=== PATIENT | male | born 1950 | race Caucasian/White ===

== ENCOUNTER 2020-02-08 13:22 | Inpatient (IN) | payer OTHER ==
[~2020-02-08] VITALS: Ht 180.3 cm; Wt 99.8 kg
[2020-02-08] MEDS ORDERED: SODIUM CHLORIDE 0.9% 1,000 ML IV ONE (15:00)
[2020-02-08 15:37] LABS: Basophils # (auto) 0 10 ^3/uL (0-0.2); Basophils % (auto) 0.4 % (0.0-2.0); Eosinophils # (auto) 0.3 10 ^3/uL (0-0.8); Hemoglobin 11.4 g/dL (13.5-17.5); Lymphocytes # (auto) 1.5 10 ^3/uL (0.4-5.4); Lymphocytes % (auto) 21.3 % (10.0-50.0); Mean Corpuscular Hemoglobin 29.2 pg (28.0-32.0); Mean Corpuscular Hgb Conc. 32.6 g/dL (32.0-36.0); Mean Corpuscular Volume 89.7 fL (80.0-100.0); Monocytes # (auto) 0.5 10 ^3/uL (0-1.3); Monocytes % (auto) 6.6 % (0.0-12.0); Neutrophils # (auto) 4.8 10 ^3/uL (1.6-8.6); Neutrophils % (auto) 67.7 % (37.0-80.0); Nucleated Red Blood Cells % 0.1 %; Platelet Count (auto) 164 10^3/uL (140-450); Red Cell Distribution Width 14.7 % (11.8-14.3); White Blood Cell 7.1 10^3/uL (4.4-10.8)
[2020-02-08 15:53] LABS: Albumin 3.1 g/dL (3.4-5.0); Anion Gap 8 (5-15); Blood Urea Nitrogen 18 mg/dL (7-18); Calcium 8.1 mg/dL (8.5-10.1); Carbon Dioxide 24 mmol/L (21-32); Chloride 108 mmol/L (98-107); Glucose 103 mg/dL (74-106); Magnesium 1.6 mg/dL (1.6-2.6); Potassium 3.3 mmol/L (3.5-5.1); Sodium 140 mmol/L (136-145)
[2020-02-08 15:55] LABS: Alanine Aminotransferase 18 U/L (16-61); Aspartate Aminotransferase 13 U/L (15-37); BUN/Creatinine Ratio 13.5; GFR African American 68 mL/min; GFR Non-African American 56 mL/min
[2020-02-08 16:01] LABS: Alkaline Phosphatase 73 U/L (45-117); Bilirubin, Total 0.4 mg/dL (0.2-1.0); Total Protein 6.2 g/dL (6.4-8.2)
[2020-02-08 20:19] LABS: Urine WBC None Seen /hpf (0 - 3)
[2020-02-08] MEDS ORDERED: SODIUM CHLORIDE 0.9% 1,000 ML IV SCH (20:36)
[2020-02-08] MEDS ORDERED: NITROGLYCERIN 0.4 MG SL TAB SL PRN (20:45)
[2020-02-08] MEDS ORDERED: ALBUMIN 5% 250 ML IV ONE (20:45)
[2020-02-08] MEDS ORDERED: ACETAMINOPHEN 325 MG TAB PO PRN (20:45)
[2020-02-08] MEDS ORDERED: MORPHINE SULF INJ 2 MG/ML SYRINGE 1ML IV PRN (20:45)
[2020-02-08 20:50] LABS: Urine Bacteria NONE SEEN /hpf (None Seen); Urine Blood Negative /uL (Negative); Urine Specific Gravity 1.016 (1.001-1.035)
[2020-02-08 21:00] VITALS: BP 124/69
[2020-02-08] MEDS ORDERED: FAMOTIDINE 20 MG TAB PO SCH (22:00)
[2020-02-08] MEDS ORDERED: ATORVASTATIN 20 MG TAB PO SCH (22:00)
[2020-02-09] MEDS ORDERED: ASPirin 81 mg TAB PO SCH (10:00)
[2020-02-09] MEDS ORDERED: ENOXAPARIN SOD 40 MG/0.4 ML SYRINGE SC SCH (10:00)
== END 2020-02-08 21:08 | disposition left against medical advice (07) | DRG 69 ==
LOC: EDBD 13:22 → ER 13:22 → TELE 13:23
PROVIDERS: ADMIT Nurse Practitioner; ATTEND Nurse Practitioner
DX: G45.9 Transient cerebral ischemic attack, unspecified (principal); J96.01 Acute respiratory failure with hypoxia; D64.9 Anemia, unspecified; E87.6 Hypokalemia; I10 Essential (primary) hypertension; Z53.29 Procedure and treatment not carried out because of patient's decision for other reasons; I95.9 Hypotension, unspecified; Z86.73 Personal history of transient ischemic attack (TIA), and cerebral infarction without residual deficits
CPT/HCPCS: 36415; 70450; 71045; 80053; 81001; 83735; 84484; 85025; 93005; 96360; 99291; G0378

== ENCOUNTER 2020-10-02 20:46 | Inpatient (IN) | payer OTHER ==
[~2020-10-02] VITALS: Ht 182.9 cm; Wt 90.3 kg
[2020-10-02] MEDS ORDERED: ACETAMINOPHEN 325 MG TAB PO ONE (21:15)
[2020-10-02] MEDS ORDERED: SODIUM CHLORIDE 0.9% 1,000 ML IV ONE (22:00)
[2020-10-02] MEDS ORDERED: PIPERACILLIN-TAZOB 3.375GM 100 ML IV ONE (22:00)
[2020-10-02 22:02] LABS: Basophils # (auto) 0 10 ^3/uL (0-0.2); Basophils % (auto) 0.1 % (0.0-2.0); Eosinophils # (auto) 0.1 10 ^3/uL (0-0.8); Eosinophils % (auto) 0.5 % (0.0-7.0); Hematocrit 31.7 % (41.0-53.0); Hemoglobin 10.8 g/dL (13.5-17.5); Lymphocytes # (auto) 0.5 10 ^3/uL (0.4-5.4); Lymphocytes % (auto) 5.1 % (10.0-50.0); Mean Corpuscular Hemoglobin 30.2 pg (28.0-32.0); Mean Corpuscular Hgb Conc. 34.1 g/dL (32.0-36.0); Mean Corpuscular Volume 88.5 fL (80.0-100.0); Monocytes # (auto) 0.5 10 ^3/uL (0-1.3); Monocytes % (auto) 4.6 % (0.0-12.0); Neutrophils # (auto) 9.2 10 ^3/uL (1.6-8.6); Neutrophils % (auto) 89.7 % (37.0-80.0); Platelet Count (auto) 154 10^3/uL (140-450); Red Blood Cells 3.59 10^6/uL (4.5-5.90); Red Cell Distribution Width 14.9 % (11.8-14.3); White Blood Cell 10.3 10^3/uL (4.4-10.8)
[2020-10-02 22:25] LABS: BUN/Creatinine Ratio 26.4; Calcium 8.3 mg/dL (8.5-10.1); Magnesium 2.2 mg/dL (1.6-2.6); Potassium 3.9 mmol/L (3.5-5.1)
[2020-10-02 22:28] LABS: INR 1.03 (0.9-1.15); Partial Thromboplastin Time 31.2 sec (23.0-31.2)
[2020-10-02 22:41] LABS: Bilirubin, Total 0.9 mg/dL (0.2-1.0); Total Protein 6.8 g/dL (6.4-8.2)
[2020-10-02] MEDS ORDERED: levoFLOXacin 500MG 100 ML IV ONE (23:45)
[2020-10-03 01:01] LABS: Urine Bacteria FEW /hpf (None Seen); Urine Blood Negative /uL (Negative); Urine Specific Gravity 1.019 (1.001-1.035); Urine WBC 1 /hpf (0 - 3)
[2020-10-03 01:08] LABS: Alcohol, Urine < 3.0 mg/dL (0-10); Amphetamine Screen, Urine NEGATIVE (NEGATIVE); Barbiturate Scree,Urine NEGATIVE (NEGATIVE); Benzodiazephine Screen, Urine POSITIVE (NEGATIVE); Cannabinoid Screen, Urine NEGATIVE (NEGATIVE); Cocaine Screen, Urine NEGATIVE (NEGATIVE); Opiate Scree,Urine POSITIVE (NEGATIVE); Phencyclidine Screen, Urine NEGATIVE (NEGATIVE)
[2020-10-03] MEDS ORDERED: DOCUSATE SOD 100 MG CAP PO PRN (05:15)
[2020-10-03] MEDS ORDERED: NITROGLYCERIN 0.4 MG SL TAB SL PRN (05:15)
[2020-10-03] MEDS ORDERED: ACETAMINOPHEN 325 MG TAB PO PRN (05:15)
[2020-10-03] MEDS ORDERED: MORPHINE SULF INJ 2 MG/ML SYRINGE 1ML IV PRN (05:15)
[2020-10-03] MEDS ORDERED: ONDANSETRON HCL 4 MG/2 ML VIAL IV PRN (05:15)
[2020-10-03] MEDS ORDERED: SODIUM CHLORIDE 0.9% 1,000 ML IV SCH (05:15)
[2020-10-03] MEDS ORDERED: FUROSEMIDE 20 MG/2 ML VIAL IV SCH (06:00)
[2020-10-03 06:48] LABS: Basophils # (auto) 0 10 ^3/uL (0-0.2); Basophils % (auto) 0.2 % (0.0-2.0); Eosinophils # (auto) 0 10 ^3/uL (0-0.8); Eosinophils % (auto) 0.4 % (0.0-7.0); Hematocrit 30.2 % (41.0-53.0); Hemoglobin 10.3 g/dL (13.5-17.5); Lymphocytes # (auto) 0.7 10 ^3/uL (0.4-5.4); Lymphocytes % (auto) 7.3 % (10.0-50.0); Mean Corpuscular Hemoglobin 30.2 pg (28.0-32.0); Mean Corpuscular Volume 88.8 fL (80.0-100.0); Monocytes # (auto) 0.5 10 ^3/uL (0-1.3); Monocytes % (auto) 5.5 % (0.0-12.0); Neutrophils # (auto) 7.9 10 ^3/uL (1.6-8.6); Neutrophils % (auto) 86.6 % (37.0-80.0); Platelet Count (auto) 142 10^3/uL (140-450); Red Cell Distribution Width 14.6 % (11.8-14.3); White Blood Cell 9.2 10^3/uL (4.4-10.8)
[2020-10-03 07:07] LABS: Albumin 2.6 g/dL (3.4-5.0); Calcium 8.6 mg/dL (8.5-10.1); Potassium 3.7 mmol/L (3.5-5.1)
[2020-10-03 07:13] LABS: BUN/Creatinine Ratio 28.9; Total Protein 6.5 g/dL (6.4-8.2)
[2020-10-03] MEDS: HYDROcodone-ACET 5/325MG TAB PO PRN ×2 (09:59→18:14)
[2020-10-03] MEDS ORDERED: AZITHROMYCIN 500MG/ 250ML 250 ML IV SCH (10:00)
[2020-10-03] MEDS ORDERED: ASPirin 81 mg TAB PO SCH (10:00)
[2020-10-03] MEDS ORDERED: FAMOTIDINE 20 MG TAB PO SCH (10:00)
[2020-10-03] MEDS ORDERED: MULTIPLE VITAMIN TAB PO SCH (10:00)
[2020-10-03] MEDS ORDERED: ZINC SULFATE 220mg CAP or TAB PO SCH (10:00)
[2020-10-03] MEDS ORDERED: ENOXAPARIN SOD 40 MG/0.4 ML SYRINGE SC SCH (10:00)
[2020-10-03] MEDS ORDERED: ASCORBIC ACID 500 MG TAB PO SCH (10:00)
[2020-10-03] MEDS ORDERED: IOHEXOL 350 MG/ML 100ML IJ ONE (10:16)
[2020-10-03 13:33] VITALS: BP 153/88
[2020-10-03] MEDS ORDERED: ATORVASTATIN 20 MG TAB PO SCH ×2 (15:00→22:00)
[2020-10-03] MEDS ORDERED: cefTRIAXone 1GM/50ML D5W 50 ML IV SCH (15:00)
[2020-10-03] MEDS ORDERED: FINASTERIDE 5 MG TAB PO SCH (15:00)
[2020-10-03] MEDS ORDERED: CITALOPRAM HYDROBR 20 MG TAB PO ONE (15:00)
[2020-10-03] MEDS ORDERED: HEPARIN SODIUM (PORCINE) 5000 UNITS/ML 1ML VIAL IV ONE (15:15)
[2020-10-03] MEDS ORDERED: HEPARIN DRIP/D5W 100UNITS/ML 250 ML IV SCH (15:15)
[2020-10-03] MEDS: MORPHINE SULFATE 4 MG/ML SYR/VIAL IV PRN ×2 (15:31→21:30)
[2020-10-03 16:19] LABS: Basophils # (auto) 0 10 ^3/uL (0-0.2); Basophils % (auto) 0.1 % (0.0-2.0); Eosinophils # (auto) 0 10 ^3/uL (0-0.8); Eosinophils % (auto) 0.1 % (0.0-7.0); Hematocrit 31.2 % (41.0-53.0); Hemoglobin 10.6 g/dL (13.5-17.5); Lymphocytes # (auto) 0.7 10 ^3/uL (0.4-5.4); Lymphocytes % (auto) 7.3 % (10.0-50.0); Mean Corpuscular Hemoglobin 29.9 pg (28.0-32.0); Mean Corpuscular Hgb Conc. 33.9 g/dL (32.0-36.0); Mean Corpuscular Volume 88.2 fL (80.0-100.0); Monocytes # (auto) 0.6 10 ^3/uL (0-1.3); Monocytes % (auto) 5.9 % (0.0-12.0); Neutrophils # (auto) 8.2 10 ^3/uL (1.6-8.6); Neutrophils % (auto) 86.6 % (37.0-80.0); Platelet Count (auto) 159 10^3/uL (140-450); Red Blood Cells 3.53 10^6/uL (4.5-5.90); Red Cell Distribution Width 14.5 % (11.8-14.3); White Blood Cell 9.5 10^3/uL (4.4-10.8)
[2020-10-03 16:33] LABS: INR 1.08 (0.9-1.15); Partial Thromboplastin Time 35.2 sec (23.0-31.2)
[2020-10-03] MEDS ORDERED: TAMSULOSIN HYDROCHLORIDE 0.4 MG CAP PO SCH (18:00)
[2020-10-04] MEDS ORDERED: CITALOPRAM HYDROBR 20 MG TAB PO SCH (10:00)
[2020-10-04] MEDS ORDERED: FUROSEMIDE 40 MG TAB PO SCH (10:00)
== END 2020-10-03 21:53 | disposition short-term general hospital (02) | DRG 280 ==
LOC: EDBD 20:46 → ER 20:49 → TELE 20:50 → TELE-CENTR 10-03 08:11
PROVIDERS: ADMIT Nurse Practitioner Family; ATTEND Internal Medicine
DX: I21.4 Non-ST elevation (NSTEMI) myocardial infarction (principal); S72.001A Fracture of unspecified part of neck of right femur, initial encounter for closed fracture; J18.9 Pneumonia, unspecified organism; N17.9 Acute kidney failure, unspecified; Z20.822 Contact with and (suspected) exposure to COVID-19; D64.9 Anemia, unspecified; F03.90 Unspecified dementia, unspecified severity, without behavioral disturbance, psychotic disturbance, mood disturbance, and anxiety; I11.0 Hypertensive heart disease with heart failure; W18.30XA Fall on same level, unspecified, initial encounter; I50.9 Heart failure, unspecified; I25.10 Atherosclerotic heart disease of native coronary artery without angina pectoris; Y99.8 Other external cause status; Y93.89 Activity, other specified; Y92.009 Unspecified place in unspecified non-institutional (private) residence as the place of occurrence of the external cause; I25.2 Old myocardial infarction; Z86.73 Personal history of transient ischemic attack (TIA), and cerebral infarction without residual deficits; Z95.1 Presence of aortocoronary bypass graft
CPT/HCPCS: 36415; 51702; 70450; 71045; 71275; 73502; 73700; 80053; 80061; 80307; 80320; 81001; 83036; 83605; 83735; 83880; 84484; 85025; 85379; 85610; 85730; 86850; 86900; 86901; 87040; 87086; 87426; 93005; 93306; 96365; 96366; 96375; A4565; G0378; J0696; J2543

== ENCOUNTER 2025-01-29 07:28 | Inpatient (IN) | payer MEDICARE, OTHER ==
[~2025-01-29] VITALS: Ht 180.3 cm; Wt 73.1 kg
--- NOTE | 2025-01-29 08:03 | ED.PDOC ---
Back pain HPI HPI Comments 74 y/o M, BIBA, with PMHx of CHF, HTN, and DM presents to the ED for CC of back pain. EMS reports, patient is coming from home where he c/o back pain onset, x6days. EMS relays, upon arrival to scene patient was found to be living in unsanitary living conditions and soiled, covered in both urine and feces. Patient complains of current 02/03 back pain. Chief Complaint: Back Pain Time Seen by MD: 07:50 Primary Care Provider: PRUDENCEK Reviewed Notes: Nurses Notes, Ham Facer Notes, Medications, Allergies Allergies: Coded Allergies: NO KNOWN ALLERGIES (Unverified , 10/02/20) Home Meds No Active Prescriptions or Reported Meds Information Source: Patient, Emergency Med Personnel Mode of Arrival: EMS Timing: Days Duration: Since onset Location of Back pain: (B) Lumbar Severity: Moderate Prehospital treatment: None Onset: Spontaneous History of: None Modifying Factors: Nothing Associated signs and symptoms: None Past Medical History PAST MEDICAL HISTORY: CHF, DM, HTN Surgical History: Denies all surgeries Family History Family History: Unknown Social History Smoker: Non-Smoker Alcohol: Denies ETOH Use Drugs: Denies Drug Use Lives In: Home Constitutional: denies: chills, diaphoresis, fatigue, fever, malaise, sweats, weakness, others EENTM: denies: blurred vision, double vision, ear bleeding, ear discharge, ear drainage, ear pain, ear ringing, eye pain, eye redness, hearing loss, mouth pa in, mouth swelling, nasal discharge, nose bleeding, nose congestion, nose pain, photophobia, tearing, throat pain, throat swelling, voice changes, others Respiratory: denies: cough, hemoptysis, orthopnea, SOB at rest, shortness of breath, SOB with excertion, stridor, wheezing, others Cardiovascular: denies: chest pain, dizzy spells, diaphoresis, Dyspnea on exertion, edema, irregular heart beat, left arm pain, lightheadedness, palpitations, PND, syncope, others Gastrointestinal: reports: poor appetite; denies: abdomen distended, abdominal pain, blood streaked bowels, constipated, diarrhea, dysphagia, difficulty swallowing, hematemesis, melena, nausea, poor fluid intake, rectal bleeding, rectal pain, vomiting, others Genitourinary: denies: burning, dysuria, flank pain, frequency, hematuria, incontinence, penile discharge, penile sore, pain, testicle pain, testicle swelling, urgency, others Neurological: denies: dizziness, fainting, headache, left sided numbness, left sided weakness, numbness, paresthesia, pre-existing deficit, right sided numbness, right sided weakness, seizure, speech problems, tingling, tremors, weakness, others Musculoskeletal: reports: back pain; denies: gout, joint pain, joint swelling, muscle pain, muscle stiffness, neck pain, others Integumetry: denies: bruises, change in color, change in hair/nails, dryness, laceration, lesions, lumps, rash, wounds, others Allergic/Immunocompromised: denies: Difficulty Healing, Frequent Infections, Hives, Itching, others Hematologic/Lymphatic: denies: anemia, blood clots, easy bleeding, easy bruising, swollen glands, others Endocrine: denies: excessive hunger, excessive sweating, excessive thirst, excessive urination, flushing, intolerance to cold, intolerance to heat, unexplained weight gain, unexplained weight loss, others Psychiatric: denies: anxiety, bipolar disorder, depression, hopeless, panic disorder, schizophrenia, sleepless, suicidal, others All Other Systems: Reviewed and Negative Physical Exam General Appearance: Moderate Distress, Thin HEENT: Normal ENT Inspection, Pharynx Normal, TMs Normal Neck: Full Range of Motion, Non-Tender, Normal, Normal Inspection Respiratory: Chest Non-Tender, Lungs Clear, No Accessory Muscle Use, No Respiratory Distress, Normal Breath Sounds Cardiovascular: No Edema, No JVD, No Murmur, No Gallop, Normal Peripheral Pulses, Regular Rate/Rhythm Breast Exam: Deferred Gastrointestinal: No Organomegaly, Non Tender, No Pulsatile Mass, Normal Bowel Sounds, Soft Genitalia: Deferred Pelvic: Deferred Rectal: Deferred Extremities: No calf tenderness, No pedal edema Musculoskeletal : Apperance: Normal Neurologic: Alert, No Motor Deficits, No Sensory Deficits Cerebellar Function: NOT DONE Reflexes: NOT DONE Skin: Pallor Peripheral Pulses: 3+ Radial (R), 3+ Radial (L) Lymphatic: No Adenopathy Was a procedure done? Was a procedure done?: No Back Pain Differential Dx Differential Diagnosis: Musculoskeletal Pain X-Ray, Labs, Meds, VS Vital Signs Date Time Temp Pulse Resp B/P (MAP) Pulse Ox O2 Delivery O2 Flow Rate FiO2 01/29/25 12:00 72 01/29/25 11:50 80 01/29/25 11:00 99.4 98/63 (75) 99.4 01/29/25 07:35 97.6 106 18 113/78 99 97.6 Lab Test 01/29/25 11:45 01/29/25 10:00 01/29/25 09:23 Range/Units Lactic Acid Level 2.5 *H 3.1 *H 0.4-2.0 mmol/L Troponin I High Sensitivity 13 15 </=54 ng/L Urine Color [place] H Yellow Urine Clarity Ex.turbid Clear Urine pH 5.5 5.0-9.0 Urine Specific [place] 1.016 1.001-1.035 Urine Protein 1+ H Negative Urine Ketones Negative Negative Urine Blood 2+ H Negative /uL Urine Nitrite Negative Negative Urine Bilirubin Negative Negative Urine Urobilinogen 3 H Negative mg/dL Urine Leukocyte Esterase 3+ Negative /uL Urine RBC 21 0 - 3 /hpf Urine WBC Clumps Present None Seen /hpf Urine Microscopic WBC 2576 H 0-3 /HPF Urine Squamous Epithelial Cells Few <5 /hpf Urine Bacteria None seen None Seen /hpf Urine Mucus Few None Seen Urine Glucose Normal Normal mg/dL White Blood Count 23.2 H 4.4-10.8 10^3/uL Red Blood Count 3.88 L 4.5-5.90 10^6/uL Hemoglobin 10.7 L 13.5-17.5 g/dL Hematocrit 33.5 L 41.0-53.0 % Mean Corpuscular Volume 86.2 80.0-100.0 fL Mean Corpuscular Hemoglobin 27.6 L 28.0-32.0 pg Mean Corpuscular Hemoglobin Concent 32.1 32.0-36.0 g/dL Red Cell Distribution Width 20.1 H 11.8-14.3 % Platelet Count 533 H 140-450 10^3/uL Mean Platelet Volume 8.4 6.9-10.8 fL Neutrophils (%) (Auto) 90.7 H 37.0-80.0 % Lymphocytes (%) (Auto) 5.6 L 10.0-50.0 % Monocytes (%) (Auto) 2.0 0.0-12.0 % Eosinophils (%) (Auto) 1.1 0.0-7.0 % Basophils (%) (Auto) 0.6 0.0-2.0 % Neutrophils # (Auto) 21.0 H 1.6-8.6 10 ^3/uL Lymphocytes # (Auto) 1.3 0.4-5.4 10 ^3/uL Monocytes # (Auto) 0.5 0-1.3 10 ^3/uL Eosinophils # (Auto) 0.2 0-0.8 10 ^3/uL Basophils # (Auto) 0.1 0-0.2 10 ^3/uL Nucleated Red Blood Cells 0.2 % Prothrombin Time 14.1 H 9.3-11.8 sec Prothrombin Time INR 1.37 H 0.9-1.15 Activated Partial Thromboplast Time 32.0 24.5-34.5 SEC Sodium Level 127 L 136-145 mmol/L Potassium Level 2.5 *L 3.5-5.1 mmol/L Chloride Level 90 L 98-107 mmol/L Carbon Dioxide Level 20 20-31 mmol/L Anion Gap 17 H 5-15 Blood Urea Nitrogen 25 H 9-23 mg/dL Creatinine 2.37 H 0.700-1.30 mg/dL Glomerular Filtration Rate Calc 28 >90 mL/min BUN/Creatinine Ratio 10.5 10.0-20.0 Serum Glucose 102 74-106 mg/dL Calcium Level 8.8 8.7-10.4 mg/dL Total Bilirubin 1.1 H 0.2-1.0 mg/dL Aspartate Amino Transferase (AST) 28 13-40 U/L Alanine Aminotransferase (ALT) 15 7-40 U/L Alkaline Phosphatase 269 H 46-116 U/L Creatine Kinase 170 46-171 U/L Total Protein 7.9 5.7-8.2 g/dL Albumin 4.3 3.2-4.8 g/dL Current Medications Medications (Trade) Dose Ordered Sig/Devorah Route Start Time Stop Time Status Last Admin Vancomycin HCl 200 ml @ 200 mls/hr ONCE ONCE IV 01/29/25 07:45 01/29/25 08:44 DC 01/29/25 12:00 Sodium Chloride 1,000 ml @ 1,000 mls/hr Q1H ONCE IV 01/29/25 07:45 01/29/25 08:44 DC 01/29/25 11:53 Sodium Chloride 1,000 ml @ 150 mls/hr Q6H40M ONCE IV 01/29/25 07:45 01/29/25 14:24 01/29/25 11:53 Patient alert. He is tachycardic. Saturation pristine. Respiratory rate within normal limits. He is mentating. Possible sepsis from the wound in the back. Bed ridden. Does not take care himself. He does not take any medications. 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 Establish intravenous access. Was given fluids. Explained to the patient. Continue to monitor. [place] [id number] Ph: [phone] DIAGNOSTIC IMAGING Diagnostic Imaging Report : [id number] Signed PATIENT: LESLY BRYSON ACCT: [id number] UNIT: [id number] : 1950 LOC: ER ROOM / BED: / AGE / SEX: 74 / M ADM STATUS: REG ER SERVICE 0742 ORDERING PHYSICIAN: LAWSON VILLATORO MD PROCEDURE(s): CXRP - CHEST PORTABLE REASON: sob ORDER NUMBER(s): [id number], ACCESSION NUMBER(s): [id number] CHEST RADIOGRAPH Indication: sob Technique: Single frontal view of the chest was obtained COMPARISON: CHEST PORTABLE on DOS: 10/02/20 FINDINGS: Lines and Tubes: Median sternotomy Lungs: Clear Pleura: No effusion. No pneumothorax. Cardiomediastinal contours: Tortuosity of the descending thoracic aorta Bones: Unremarkable IMPRESSION: No acute disease. ATED BY: JAMES PATEL MD DICTATED DATE/TIME: 01/29/25 1230 SIGNED BY: JAMES PATEL MD SIGNED DATE/TIME: 01/29/25 1230 CC: Time of 1ST Reevaluation: 08:20 Reevaluation 1ST: Unchanged Patient Education/Counseling: Diagnosis, Treatment Family Education/Counseling: No Family Present SEPSIS Sepsis Screen Date sepsis recognized/suspect: Jan 29, 2025 Time Sepsis recognized/suspect: 0735 Recent Procedure: No On Antibiotic Therapy: No Respiratory Rate >20: No Heart Rate >90: Yes Temp<36 C (96.8 F) or >38.3 C: No SBP <90 or MAP <65 mmHG: No New Acute Mental Status Change: No Is the patient on CPAP, BIPAP,: No Physician Orders Chest Portable (01/29/25 07:42) Accucheck (01/29/25 07:42) Blood Culture (01/29/25 07:42) Cefepime 1gm/ 50ml (Maxipime 1gm/50ml) (01/29/25 14:00) Notify Md If Map <65 Or Bp<90 (01/29/25 07:42) If Map<65 Start Vasopressor (01/29/25 07:42) Sepsis Reassesment After Fluid (01/29/25 08:42) Sodium Chloride 0.9% (01/29/25 07:45) Troponin-I Hs (01/29/25 11:52) Vital Signs Date Time Temp Pulse Resp B/P (MAP) Pulse Ox O2 Delivery O2 Flow Rate FiO2 01/29/25 12:00 72 01/29/25 11:50 80 01/29/25 11:00 99.4 98/63 (75) 99.4 01/29/25 07:35 97.6 106 18 113/78 99 97.6 Laboratory Tests Test 01/29/25 09:23 01/29/25 11:45 Lactic Acid Level 3.1 mmol/L (0.4-2.0) *H 2.5 mmol/L (0.4-2.0) *H White Blood Count 23.2 10^3/uL (4.4-10.8) H Medications Medications Dose Ordered Sig/Devorah Route Start Time Stop Time Status Last Admin Dose Admin Sodium Chloride 1,000 ml @ 150 mls/hr Q6H40M ONCE IV 01/29/25 07:45 01/29/25 14:24 01/29/25 11:53 Sodium Chloride 1,000 ml @ 1,000 mls/hr Q1H ONCE IV 01/29/25 07:45 01/29/25 08:44 DC 01/29/25 11:53 Vancomycin HCl 200 ml @ 200 mls/hr ONCE ONCE IV 01/29/25 07:45 01/29/25 08:44 DC 01/29/25 12:00 Departure 1 Departure Time of Disposition: 08:51 Impression: Primary Impression: Failure to thrive Qualified Codes: R62.7 - Adult failure to thrive Disposition: ADMITTED INPATIENT Admit to: Med Surg Condition: Guarded e-Prescriptions No Active Prescriptions or Reported Meds Critical Care Note Critical Care Time?: Yes (90 min-critical care time only) Stability Stability form required: No Heart Score Heart Score: Heart Score Response (Comments) Value History Slightly Suspicious 0 EKG Normal 0 Age 45-64 1 Risk Factors 1 or 2 risk factors 1 Troponin Normal limit 0 Total 2 I personally scribed for LAWSON VILLATORO MD ([email or web address]) on 01/29/25 at 08:03. Electronically submitted by Elaina Mckeon ([email or web address]). I personally scribed for LAWSON VILLATORO MD ([email or web address]) on 01/29/25 at 08:20. Electronically submitted by Elaina Mckeon ([email or web address]). I personally scribed for LAWSON VILLATORO MD ([email or web address]) on 01/29/25 at 13:12. Electronically submitted by Elaina Mckeon ([email or web address]). LAWSON VILLATORO MD Jan 29, 2025 08:03
[2025-01-29 09:48] LABS: Hematocrit 33.5 % (41.0-53.0); Hemoglobin 10.7 g/dL (13.5-17.5); Mean Corpuscular Hemoglobin 27.6 pg (28.0-32.0); Mean Corpuscular Volume 86.2 fL (80.0-100.0); Nucleated Red Blood Cells % 0.2 %
[2025-01-29 10:13] LABS: Lactic Acid w/Reflex 3.1 mmol/L (0.4-2.0)
[2025-01-29 10:17] LABS: Alanine Aminotransferase 15 U/L (7-40); Albumin 4.3 g/dL (3.2-4.8); Anion Gap 17 (5-15); BUN/Creatinine Ratio 10.5 (10.0-20.0); Bilirubin, Total 1.1 mg/dL (0.2-1.0); Calcium 8.8 mg/dL (8.7-10.4); Carbon Dioxide 20 mmol/L (20-31); Glucose 102 mg/dL (74-106); Total Protein 7.9 g/dL (5.7-8.2)
[2025-01-29 10:19] LABS: Alkaline Phosphatase 269 U/L (46-116); Blood Urea Nitrogen 25 mg/dL (9-23); Chloride 90 mmol/L (98-107); Potassium 2.5 mmol/L (3.5-5.1); Sodium 127 mmol/L (136-145)
[2025-01-29 10:20] LABS: INR 1.37 (0.9-1.15); Partial Thromboplastin Time 32.0 SEC (24.5-34.5); Prothrombin Time 14.1 sec (9.3-11.8)
[2025-01-29 11:00] VITALS: PULSE 84; RESP 16; O2SAT 98
--- NOTE | 2025-01-29 11:52 | ECG ---
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
[2025-01-29] MEDS: SODIUM CHLORIDE 0.9% 1,000 ML IV ONE ×3 (11:53→14:30)
[2025-01-29] MEDS: VANCOMYCIN 1GM/200ML PM 200 ML IV ONE (12:00)
--- NOTE | 2025-01-29 12:33 | DVH ---
CHEST RADIOGRAPH Indication: sob Technique: Single frontal view of the chest was obtained COMPARISON: CHEST PORTABLE on DOS: 10/02/20 FINDINGS: Lines and Tubes: Median sternotomy Lungs: Clear Pleura: No effusion. No pneumothorax. Cardiomediastinal contours: Tortuosity of the descending thoracic aorta Bones: Unremarkable IMPRESSION: No acute disease.
[2025-01-29 12:49] LABS: Urine Protein, UAD 1+ (Negative); Urine WBC Clumps PRESENT /hpf (None Seen)
[2025-01-29] MEDS: CEFEPIME 1GM/ 50ML 50 ML IV ONE (14:00)
[2025-01-29] MEDS ORDERED: ACETAMINOPHEN 325 MG TAB PO PRN (14:00)
[2025-01-29] MEDS ORDERED: DOCUSATE SOD 100 MG CAP PO PRN (14:00)
[2025-01-29] MEDS ORDERED: ONDANSETRON HCL 4 MG/2 ML VIAL IV PRN (14:00)
[2025-01-29] MEDS ORDERED: VANCOMYCIN PER PHARMACY 0 MG IV SCH (14:15)
--- NOTE | 2025-01-29 14:29 | DVHHP2 ---
History of Present Illness Reason for Visit: Back Pain History of Present Illness Clyde Helm is a 74-year-old male with no significant past medical history who does not go to a primary care provider. Patient called EMS to bring him to the hospital today due to back pain, and multiple bed sores on his body. Per EMS when they arrived the house was extremely unkept and the patient was sitting in his own urine and feces. Patient states he can walk short distances in the house, but not very far. He states he lives with his who can ambulate around the house but is not helping him. Smoke: No ALCOHOL: none Drugs: None Lives: with Family Domestic Violence: Neg Review of Systems Constitutional: No: Fever, Chills, Sweats, Weakness, Malaise, Other Eyes: No: Pain, Vision change, Conjunctivae inflammation, Eyelid inflammation, Other, Redness ENT: No: Ear pain, Ear discharge, Nose pain, Nose discharge, Nose congestion, Mouth pain, Mouth swelling, Throat pain, Throat swelling, Other Respiratory: No: Cough, Dry, Shortness of breath, SOB with excertion, Wheezing, Hemoptysis, Pleuritic Pain, Sputum, Wheezing, Other Cardiovascular: No: Chest Pain, Palpitations, Orthopnea, Paroxysmal Noc. Dyspnea, Edema, Lt Headedness, Other Gastrointestinal: No: Nausea, Vomiting, Abdominal Pain, Diarrhea, Constipation, Melena, Hematochezia, Other Genitourinary: No Dysuria, No Frequency; Incontinence; No Hematuria, No Retention, No Other Musculoskeletal: back pain; No: other, neck pain, shoulder pain, arm pain, hand pain, leg pain, foot pain Skin: No: Rash, Lesions, Jaundice, Bruising, Other Neurological: No: Weakness, Numbness, Incoordination, Change in speech, Confusion, Seizures, Other Allergies: Coded Allergies: NO KNOWN ALLERGIES (Unverified , 10/02/20) Medications Current Medications Medications Dose Ordered Sig/Devorah Route Start Time Stop Time Status Last Admin Dose Admin Cefepime HCl 50 ml @ 12.5 mls/hr Q12H IV 01/29/25 22:00 Acetaminophen/ Hydrocodone Bitart 1 tab Q4HP PRN PO 01/29/25 14:00 UNV Ondansetron HCl 4 mg Q4HP PRN IV 01/29/25 14:00 UNV Docusate Sodium 100 mg BIDPRN PRN PO 01/29/25 14:00 UNV Multivitamins 1 tab DAILY PO 01/30/25 10:00 UNV Acetaminophen 650 mg Q6HP PRN PO 01/29/25 14:00 UNV Zinc Sulfate 220 mg DAILY PO 01/30/25 10:00 UNV Folic Acid 1 mg DAILY PO 01/30/25 10:00 UNV Exam Vital Signs Vital Signs Date Time Temp Pulse Resp B/P (MAP) Pulse Ox O2 Delivery O2 Flow Rate FiO2 01/29/25 13:00 80 14 102/60 (74) 99 01/29/25 11:00 Room Air* 0 21 01/29/25 11:00 99.4 99.4 General Appearance: Alert, Oriented X3, Cooperative, moderate distress HEENT: Atraumatic, PERRLA Respiratory: Clear to auscultation, Normal air movement Cardiovascular: Regular rate, Normal S1, Normal S2 Abdominal: Normal bowel sounds, Soft, No tenderness Extremities: No clubbing, No cyanosis Skin: No rashes, No significant lesion (multiple open wounds/pressure sores to left hip/leg and buttock) Neuro: Normal speech Psych/Mental Status: Mental status NL Labs/Xrays Labs Test 01/29/25 13:16 01/29/25 11:45 01/29/25 10:00 01/29/25 09:23 Range/Units Troponin I High Sensitivity 13 </=54 ng/L Lactic Acid Level 2.5 *H 0.4-2.0 mmol/L Urine Color [place] H Yellow Urine Clarity Ex.turbid Clear Urine pH 5.5 5.0-9.0 Urine Specific [place] 1.016 1.001-1.035 Urine Protein 1+ H Negative Urine Ketones Negative Negative Urine Blood 2+ H Negative /uL Urine Nitrite Negative Negative Urine Bilirubin Negative Negative Urine Urobilinogen 3 H Negative mg/dL Urine Leukocyte Esterase 3+ Negative /uL Urine RBC 21 0 - 3 /hpf Urine WBC Clumps Present None Seen /hpf Urine Microscopic WBC 2576 H 0-3 /HPF Urine Squamous Epithelial Cells Few <5 /hpf Urine Bacteria None seen None Seen /hpf Urine Mucus Few None Seen Urine Glucose Normal Normal mg/dL White Blood Count 23.2 H 4.4-10.8 10^3/uL Red Blood Count 3.88 L 4.5-5.90 10^6/uL Hemoglobin 10.7 L 13.5-17.5 g/dL Hematocrit 33.5 L 41.0-53.0 % Mean Corpuscular Volume 86.2 80.0-100.0 fL Mean Corpuscular Hemoglobin 27.6 L 28.0-32.0 pg Mean Corpuscular Hemoglobin Concent 32.1 32.0-36.0 g/dL Red Cell Distribution Width 20.1 H 11.8-14.3 % Platelet Count 533 H 140-450 10^3/uL Mean Platelet Volume 8.4 6.9-10.8 fL Neutrophils (%) (Auto) 90.7 H 37.0-80.0 % Lymphocytes (%) (Auto) 5.6 L 10.0-50.0 % Monocytes (%) (Auto) 2.0 0.0-12.0 % Eosinophils (%) (Auto) 1.1 0.0-7.0 % Basophils (%) (Auto) 0.6 0.0-2.0 % Neutrophils # (Auto) 21.0 H 1.6-8.6 10 ^3/uL Lymphocytes # (Auto) 1.3 0.4-5.4 10 ^3/uL Monocytes # (Auto) 0.5 0-1.3 10 ^3/uL Eosinophils # (Auto) 0.2 0-0.8 10 ^3/uL Basophils # (Auto) 0.1 0-0.2 10 ^3/uL Nucleated Red Blood Cells 0.2 % Prothrombin Time 14.1 H 9.3-11.8 sec Prothrombin Time INR 1.37 H 0.9-1.15 Activated Partial Thromboplast Time 32.0 24.5-34.5 SEC Sodium Level 127 L 136-145 mmol/L Potassium Level 2.5 *L 3.5-5.1 mmol/L Chloride Level 90 L 98-107 mmol/L Carbon Dioxide Level 20 20-31 mmol/L Anion Gap 17 H 5-15 Blood Urea Nitrogen 25 H 9-23 mg/dL Creatinine 2.37 H 0.700-1.30 mg/dL Glomerular Filtration Rate Calc 28 >90 mL/min BUN/Creatinine Ratio 10.5 10.0-20.0 Serum Glucose 102 74-106 mg/dL Calcium Level 8.8 8.7-10.4 mg/dL Total Bilirubin 1.1 H 0.2-1.0 mg/dL Aspartate Amino Transferase (AST) 28 13-40 U/L Alanine Aminotransferase (ALT) 15 7-40 U/L Alkaline Phosphatase 269 H 46-116 U/L Creatine Kinase 170 46-171 U/L Total Protein 7.9 5.7-8.2 g/dL Albumin 4.3 3.2-4.8 g/dL CHEST RADIOGRAPH FINDINGS: Lines and Tubes: Median sternotomy Lungs: Clear Pleura: No effusion. No pneumothorax. Cardiomediastinal contours: Tortuosity of the descending thoracic aorta Bones: Unremarkable IMPRESSION: No acute disease. SEPSIS Sepsis Screen Date sepsis recognized/suspect: Jan 29, 2025 Time Sepsis recognized/suspect: 1099 Recent Procedure: No On Antibiotic Therapy: No Respiratory Rate >20: No Heart Rate >90: No Temp<36 C (96.8 F) or >38.3 C: No SBP <90 or MAP <65 mmHG: No New Acute Mental Status Change: No Is the patient on CPAP, BIPAP,: No Physician Orders Chest Portable (01/29/25 07:42) Accucheck (01/29/25 07:42) Blood Culture (01/29/25 07:42) Cefepime 1gm/ 50ml (Maxipime 1gm/50ml) (01/29/25 22:00) Notify Md If Map <65 Or Bp<90 (01/29/25 07:42) If Map<65 Start Vasopressor (01/29/25 07:42) Sepsis Reassesment After Fluid (01/29/25 08:42) Sodium Chloride 0.9% (01/29/25 07:45) Cefepime 1gm/ 50ml (Maxipime 1gm/50ml) (01/29/25 14:00) Admit (01/29/25 14:00) Code Status (01/29/25 14:00) 2 Gm Sodium Diet (01/29/25 Dinner) Hydrocodone-Acet 5/325mg Tab (Colony (01/29/25 14:00) Ondansetron Hcl (Zofran) (01/29/25 14:00) Docusate Sodium Capsule (Colace Capsule) (01/29/25 14:00) Multiple Vitamin Tablet (Mvi Tab) (01/30/25 10:00) Fall Risk Precautions In Place QSHIFT (01/29/25 14:00) Complete Blood Count (01/30/25 04:00) Comprehensive Metabolic Panel (01/30/25 04:00) Pt Request For Service (01/29/25 14:00) Condition: Serious (01/29/25 14:00) Acetaminophen Tablet (Tylenol Tablet) (01/29/25 14:00) Zinc Sulfate (01/30/25 10:00) Zinc Sulfate (01/29/25 14:00) Folic Acid Tablet (01/30/25 10:00) Folic Acid Tablet (01/29/25 14:00) * Wound Consult (01/29/25 ) Wound Culture W/ Gs (01/29/25 14:00) * Dietary Consult (01/29/25 14:00) Potassium Effervesent Tab (Klor-Con/Ef) (01/29/25 14:00) Magnesium (01/29/25 18:00) Potassium (01/29/25 18:00) NS (01/29/25 14:15) Vancomycin Per Pharmacy (01/29/25 14:15) Cefepime 1 Gm (01/29/25 22:00) Vital Signs Date Time Temp Pulse Resp B/P (MAP) Pulse Ox O2 Delivery O2 Flow Rate FiO2 01/29/25 13:00 80 14 102/60 (74) 99 01/29/25 12:00 72 01/29/25 11:50 80 01/29/25 11:00 84 16 98 Room Air* 0 21 01/29/25 11:00 99.4 98/63 (75) 99.4 01/29/25 07:35 97.6 106 18 113/78 99 97.6 Laboratory Tests Test 01/29/25 09:23 01/29/25 11:45 Lactic Acid Level 3.1 mmol/L (0.4-2.0) *H 2.5 mmol/L (0.4-2.0) *H White Blood Count 23.2 10^3/uL (4.4-10.8) H Medications Medications Dose Ordered Sig/Devorah Route Start Time Stop Time Status Last Admin Dose Admin Sodium Chloride 1,000 ml @ 150 mls/hr Q6H40M ONCE IV 01/29/25 07:45 01/29/25 14:24 01/29/25 11:53 150 MLS/HR Sodium Chloride 1,000 ml @ 1,000 mls/hr Q1H ONCE IV 01/29/25 07:45 01/29/25 08:44 DC 01/29/25 11:53 1,000 MLS/HR Vancomycin HCl 200 ml @ 200 mls/hr ONCE ONCE IV 01/29/25 07:45 01/29/25 08:44 DC 01/29/25 12:00 200 MLS/HR Assessment/Plan Assessment/Plan Assessment: Failure to thrive in adult, Lactic acidosis, Possible sepsis, Leukocytosis, Acute Kidney injury, Plan: Admit to Med-Surg, Social service consult, Dietary consult, Wound care consult, Physical therapy evaluation, Blood cultures, Wound cultures, IV antibiotics, IV hydration, Manage/Monitor electrolytes closely, Plan discussed with: Patient My Orders Orders - MARK LEIVA HAND PRESSER Procedure Category Date Status Time Admit ADMIT 01/29/25 Transmitted 14:00 Code Status CODE 01/29/25 Transmitted 14:00 2 Gm Sodium Diet DIET 01/29/25 Transmitted Dinner Hydrocodone-Acet PHA 01/29/25 Logged 5/325mg Tab (Colony 14:00 Ondansetron Hcl PHA 01/29/25 Logged (Zofran) 14:00 Docusate Sodium PHA 01/29/25 Logged Capsule (Colace 14:00 Multiple Vitamin PHA 01/30/25 Logged Tablet (Mvi Tab) 10:00 Fall Risk Precautions GONZÁLEZ 01/29/[address] 14:00 Complete Blood Count LAB 01/30/25 Verified 04:00 Comprehensive LAB 01/30/25 Verified Metabolic Panel 04:00 Pt Request For Service PT 01/29/25 Logged 14:00 Condition: Serious GONZÁLEZ 01/29/25 In Process 14:00 Acetaminophen Tablet PHA 01/29/25 Logged (Tylenol Tablet) 14:00 Zinc Sulfate PHA 01/30/25 Logged 10:00 Zinc Sulfate PHA 01/29/25 Logged 14:00 Folic Acid Tablet PHA 01/30/25 Logged 10:00 Folic Acid Tablet PHA 01/29/25 Logged 14:00 * Wound Consult CONS 01/29/25 Transmitted Wound Culture W/ Gs JAZ 01/29/25 Logged 14:00 * Dietary Consult CONS 01/29/25 Transmitted 14:00 Potassium Effervesent PHA 01/29/25 Logged Tab (Klor-Con/Ef) 14:00 Magnesium LAB 01/29/25 Logged 18:00 Potassium LAB 01/29/25 Logged 18:00 NS PHA 01/29/25 Verified 14:15 Vancomycin Per PHA 01/29/25 Verified Pharmacy 14:15 Cefepime 1 Gm PHA 01/29/25 Verified 22:00 Date of Service: Jan 29, 2025 Billing Provider: MARK LEIVA Common Visit Codes: [id number] INP/OBS CARE (MOD) MARK LEIVA Jan 29, 2025 14:29
[2025-01-29] MEDS: ZINC SULFATE 220mg CAP or TAB PO ONE (16:19)
[2025-01-29] MEDS: POTASSIUM EFFERVESENT TAB 25 MEQ PO ONE (16:19)
[2025-01-29] MEDS: FOLIC ACID 1 MG TAB PO ONE (16:19)
[2025-01-29 19:26] LABS: Magnesium 1.4 mg/dL (1.6-2.6); Potassium 2.8 mmol/L (3.5-5.1)
[2025-01-29 20:30] VITALS: PULSE 96; RESP 20; O2SAT 97
[2025-01-29] MEDS: CEFEPIME 1GM/ 50ML 50 ML IV SCH (21:52)
[2025-01-29] MEDS: HYDROcodone-ACET 5/325MG TAB PO PRN (21:53)
[2025-01-29] MEDS ORDERED: CEFEPIME 1GM/ 50ML 50 ML IV SCH (22:00)
[2025-01-29] MEDS ORDERED: POTASSIUM CHLORIDE 20 MEQ, LIDOCAINE 1% (LOCAL ANESTH.) 2 ML in SODIUM CHL 0.9% 100 ML IV ONE (23:30)
[2025-01-29] MEDS: ALBUMIN 5% 250 ML IV ONE (23:48)
[2025-01-29] MEDS: POTASSIUM CHL 20MEQ/100ML 100 ML IV ONE (23:49)
[2025-01-29] MEDS: MAGNESIUM SULFATE 1GM/100ML 100 ML IV SCH (23:57)
[2025-01-30 05:51] LABS: Hematocrit 32.3 % (41.0-53.0); Hemoglobin 10.5 g/dL (13.5-17.5); Mean Corpuscular Hemoglobin 27.9 pg (28.0-32.0); Mean Corpuscular Volume 85.6 fL (80.0-100.0); Nucleated Red Blood Cells % 0.1 %
[2025-01-30 05:52] LABS: Alanine Aminotransferase 10 U/L (7-40); Albumin 3.2 g/dL (3.2-4.8); Anion Gap 13 (5-15); BUN/Creatinine Ratio 16.1 (10.0-20.0); Bilirubin, Total 0.4 mg/dL (0.2-1.0); Chloride 101 mmol/L (98-107)
[2025-01-30 05:53] LABS: Alkaline Phosphatase 205 U/L (46-116); Blood Urea Nitrogen 35 mg/dL (9-23); Calcium 7.5 mg/dL (8.7-10.4); Carbon Dioxide 19 mmol/L (20-31); Glucose 119 mg/dL (74-106); Potassium 3.3 mmol/L (3.5-5.1); Sodium 133 mmol/L (136-145); Total Protein 5.6 g/dL (5.7-8.2)
[2025-01-30] MEDS: MULTIPLE VITAMIN TAB PO SCH (10:04)
[2025-01-30] MEDS: ZINC SULFATE 220mg CAP or TAB PO SCH (10:04)
[2025-01-30] MEDS: FOLIC ACID 1 MG TAB PO SCH (10:04)
[2025-01-30 10:09] VITALS: BP 110/64; PULSE 75; RESP 18
[2025-01-30 10:11] VITALS: TEMP 98.7
--- NOTE | 2025-01-30 14:43 | DVHPN2 ---
Subjective doing well. seen bedside Reviewed: H&P Changes from previous H/P or p: No Changes General: Per HPI Eyes: No Pain, No Vision change, No Conjunctivae inflammation, No Eyelid inflammation, No Other, No Redness ENT: No Ear pain, No Ear discharge, No Nose pain, No Nose discharge, No Nose congestion, No Mouth pain, No Mouth swelling, No Throat pain, No Throat swelling, No Other Cardiovascular: No Chest Pain, No Palpitations, No Orthopnea, No Paroxysmal Noc. Dyspnea, No Edema, No Lt Headedness, No Other Respiratory: No Cough, No Dry, No Shortness of breath, No SOB with excertion, No Wheezing, No Hemoptysis, No Pleuritic Pain, No Sputum, No Other Gastrointestinal: No Nausea, No Vomiting, No Abdominal Pain, No Diarrhea, No Constipation, No Melena, No Hematochezia, No Other Genitourinary: No Dysuria, No Frequency; Incontinence; No Hematuria, No Retention, No Other Musculoskeletal: No other, No neck pain, No shoulder pain, No arm pain; back pain; No hand pain, No leg pain, No foot pain Skin: No Rash, No Lesions, No Jaundice, No Bruising, No Other Objective Vitals Vital Signs Date Time Temp Pulse Resp B/P (MAP) Pulse Ox O2 Delivery O2 Flow Rate FiO2 01/30/25 14:20 98.6 77 16 102/59 (73) 95 98.6 01/30/25 08:00 Room Air* 0 21 Intake/Output Intake and Output 01/30/25 07:00 Intake Total 1750 ml Balance 1750 ml Intake IV Total 1750 ml Exam GEN: Healthy appearing, well-developed, NAD. HEENT: NC/AT; MMM. CV: RRR, no m/r/g. LUNGS: CTAB, no w/r/c. ABD: Soft, NT/ND, NBS, no masses or organomegaly. EXT: skin Warm, well perfused. no rashes. No clubbing, cyanosis, or edema. NEURO: Ambulating with no limitations. No focal deficits. Medications Current Medications Medications Dose Ordered Sig/Devorah Route Start Time Stop Time Status Last Admin Dose Admin Cefepime HCl 50 ml @ 12.5 mls/hr Q12H IV 01/29/25 22:00 01/30/25 10:05 12.5 MLS/HR Acetaminophen/ Hydrocodone Bitart 1 tab Q4HP PRN PO 01/29/25 14:00 01/30/25 11:24 1 TAB Ondansetron HCl 4 mg Q4HP PRN IV 01/29/25 14:00 Docusate Sodium 100 mg BIDPRN PRN PO 01/29/25 14:00 Multivitamins 1 tab DAILY PO 01/30/25 10:00 01/30/25 10:04 1 TAB Acetaminophen 650 mg Q6HP PRN PO 01/29/25 14:00 Zinc Sulfate 220 mg DAILY PO 01/30/25 10:00 01/30/25 10:04 220 MG Folic Acid 1 mg DAILY PO 01/30/25 10:00 01/30/25 10:04 1 MG Vancomycin HCl 0 ml @ 0 mls/hr UD IV 01/29/25 14:15 Cefepime HCl 50 ml @ 12.5 mls/hr Q12HR IV 01/29/25 22:00 UNV Laboratory Results Laboratory Tests 01/30/25 05:14 Chemistry Test 01/29/25 18:38 01/30/25 05:14 Magnesium Level 1.4 mg/dL (1.6-2.6) L Albumin 3.2 g/dL (3.2-4.8) Calcium Level 7.5 mg/dL (8.7-10.4) L Total Protein 5.6 g/dL (5.7-8.2) L LFT Test 01/30/25 05:14 Alanine Aminotransferase (ALT) 10 U/L (7-40) Alkaline Phosphatase 205 U/L (46-116) H Aspartate Amino Transferase (AST) 21 U/L (13-40) Total Bilirubin 0.4 mg/dL (0.2-1.0) Urinalysis Test 01/29/25 10:00 Urine Color [place] (Yellow) H Urine Clarity Ex.turbid (Clear) Urine pH 5.5 (5.0-9.0) Urine Specific [place] 1.016 (1.001-1.035) Urine Protein 1+ (Negative) H Urine Ketones Negative (Negative) Urine Blood 2+ /uL (Negative) H Urine Nitrite Negative (Negative) Urine Bilirubin Negative (Negative) Urine Urobilinogen 3 mg/dL (Negative) H Urine Leukocyte Esterase 3+ /uL (Negative) Urine RBC 21 /hpf (0 - 3) Urine WBC Clumps Present /hpf (None Seen) Urine Microscopic WBC 2576 /HPF (0-3) H Urine Squamous Epithelial Cells Few /hpf (<5) Urine Bacteria None seen /hpf (None Seen) Urine Mucus Few (None Seen) Urine Glucose Normal mg/dL (Normal) Microbiology Microbiology Date/Time Source Procedure Growth Status 01/29/25 09:23 Blood Blood Culture - Preliminary NO GROWTH AFTER 24 HOURS OF INCUBATION. Resulted Labs and/or images reviewed: Labs reviewed by me, Image(s) reviewed by me Assessment/Plan Assessment/Plan Clyde Helm is a 74-year-old male with no significant past medical history who does not go to a primary care provider. Patient called EMS to bring him to the hospital today due to back pain, and multiple bed sores on his body. Per EMS when they arrived the house was extremely unkept and the patient was sitting in his own urine and feces. Patient states he can walk short distances in the house, but not very far. He states he lives with his who can ambulate around the house but is not helping him. 01/30: Patient unkempt, no vomiting care patient patient unable to take care of himself. On admission appears that patient has sirs with possible source in urine. Patient also intravascular volume depleted with thrombocytosis, hypokalemic hyponatremic from intravascular volume depletion. Lactic acidosis Ag Cristopher Spann MA. Pending urine culture, pending blood culture, continue IV antibiotics. Cefepime and vancomycin. Blood pressure stable, we will continue cefepime vancomycin has most likely sources urine but it could also still be skin as patient is terribly unkempt Diagnosis: Sepsis due to below Acute complicated cystitis Failure to thrive in adult, Intravascular volume depletion DAVID and CKD, DAVID due to VMN likely Anemia, normocytic, at baseline Thrombocytosis due to above Hypokalemia Hyponatremia, likely hypovolemic Leukocytosis Neutrophilia Tachycardia Tachypnea Lactic acidosis, Anion gap metabolic acidosis, due to above Hyperbilirubinemia, ALP elevated Possible sepsis, Acute Kidney injury, -IV antibiotics cefepime vancomycin - pending urine culture blood culture -prn analgesia -wound care, zinc sulfate cream barrier -dietary consult -PT eval - p.o. vitamins Diet low-sodium Med surge Full code Plan discussed with: Patient Date of Service: Jan 30, 2025 Billing Provider: RODOLFO SAMUELS MD Common Visit Codes: [id number] INP/OBS CARE(HIGH) RODOLFO SAMUELS MD Jan 30, 2025 14:43
[2025-01-30] MEDS: VANCOMYCIN 1GM/250ML KIT 250 ML IV ONE (15:31)
[2025-01-30 17:45] VITALS: BP 113/66; PULSE 66; RESP 18; TEMP 97.3
[2025-01-30 21:00] VITALS: BP_SYST 106; BP_SYST 136; BP_DIAS 58; BP_DIAS 71; PULSE 109; PULSE 78; RESP 15; RESP 16; TEMP 97.5; TEMP 98; O2SAT 94
[2025-01-30 23:22] VITALS: BP 106/56; PULSE 66; RESP 17; TEMP 97.7; O2SAT 99
[2025-01-31 01:00] VITALS: BP 97/61; PULSE 74; RESP 16; TEMP 97.2; O2SAT 100
[2025-01-31 05:00] VITALS: BP 96/63; PULSE 82; RESP 16; TEMP 97.7; O2SAT 98
[2025-01-31 06:05] LABS: Hematocrit 26.9 % (41.0-53.0); Hemoglobin 9.0 g/dL (13.5-17.5); Mean Corpuscular Hemoglobin 27.9 pg (28.0-32.0); Mean Corpuscular Volume 83.9 fL (80.0-100.0); Nucleated Red Blood Cells % 0.0 %
[2025-01-31 06:20] LABS: Chloride 99 mmol/L (98-107)
[2025-01-31 06:21] LABS: Anion Gap 8 (5-15); Carbon Dioxide 26 mmol/L (20-31)
[2025-01-31 06:26] LABS: BUN/Creatinine Ratio 18.4 (10.0-20.0); Glucose 94 mg/dL (74-106)
[2025-01-31 06:27] LABS: Blood Urea Nitrogen 26 mg/dL (9-23); Calcium 8.1 mg/dL (8.7-10.4); Potassium 3.1 mmol/L (3.5-5.1); Sodium 133 mmol/L (136-145)
[2025-01-31 08:30] VITALS: BP 102/58; PULSE 71; RESP 16; TEMP 96.4; O2SAT 98
[2025-01-31 12:54] VITALS: BP 96/61; PULSE 80; RESP 17; TEMP 97.9; O2SAT 98
[2025-01-31] MEDS: VANCOMYCIN 1GM/250ML KIT 250 ML IV ONE (15:10)
[2025-01-31] MEDS: POTASSIUM EFFERVESENT TAB 25 MEQ PO SCH (15:15)
[2025-01-31] MEDS: MAGNESIUM OXIDE 400 MG TAB PO ONE (15:15)
--- NOTE | 2025-01-31 15:15 | DVHPN2 ---
Subjective doing well. seen bedside Reviewed: H&P Changes from previous H/P or p: No Changes General: Per HPI Eyes: No Pain, No Vision change, No Conjunctivae inflammation, No Eyelid inflammation, No Other, No Redness ENT: No Ear pain, No Ear discharge, No Nose pain, No Nose discharge, No Nose congestion, No Mouth pain, No Mouth swelling, No Throat pain, No Throat swelling, No Other Cardiovascular: No Chest Pain, No Palpitations, No Orthopnea, No Paroxysmal Noc. Dyspnea, No Edema, No Lt Headedness, No Other Respiratory: No Cough, No Dry, No Shortness of breath, No SOB with excertion, No Wheezing, No Hemoptysis, No Pleuritic Pain, No Sputum, No Other Gastrointestinal: No Nausea, No Vomiting, No Abdominal Pain, No Diarrhea, No Constipation, No Melena, No Hematochezia, No Other Genitourinary: No Dysuria, No Frequency; Incontinence; No Hematuria, No Retention, No Other Musculoskeletal: No other, No neck pain, No shoulder pain, No arm pain; back pain; No hand pain, No leg pain, No foot pain Skin: No Rash, No Lesions, No Jaundice, No Bruising, No Other Objective Vitals Vital Signs Date Time Temp Pulse Resp B/P (MAP) Pulse Ox O2 Delivery O2 Flow Rate FiO2 01/31/25 12:54 97.9 80 17 96/61 (73) 98 97.9 01/31/25 07:30 Nasal Cannula* 2 28 Intake/Output Intake and Output 01/31/25 07:00 Intake Total 760 ml Output Total 100 ml Balance 660 ml Intake Oral 410 ml IV Total 350 ml Output Urine Total 100 ml # Voids 4 Exam GEN: Healthy appearing, well-developed, NAD. HEENT: NC/AT; MMM. CV: RRR, no m/r/g. LUNGS: CTAB, no w/r/c. ABD: Soft, NT/ND, NBS, no masses or organomegaly. EXT: skin Warm, well perfused. no rashes. No clubbing, cyanosis, or edema. NEURO: Ambulating with no limitations. No focal deficits. Medications Current Medications Medications Dose Ordered Sig/Devorah Route Start Time Stop Time Status Last Admin Dose Admin Cefepime HCl 50 ml @ 12.5 mls/hr Q12H IV 01/29/25 22:00 01/31/25 10:36 12.5 MLS/HR Acetaminophen/ Hydrocodone Bitart 1 tab Q4HP PRN PO 01/29/25 14:00 01/31/25 10:36 1 TAB Ondansetron HCl 4 mg Q4HP PRN IV 01/29/25 14:00 Docusate Sodium 100 mg BIDPRN PRN PO 01/29/25 14:00 Multivitamins 1 tab DAILY PO 01/30/25 10:00 01/31/25 10:36 1 TAB Acetaminophen 650 mg Q6HP PRN PO 01/29/25 14:00 Zinc Sulfate 220 mg DAILY PO 01/30/25 10:00 01/31/25 10:36 220 MG Folic Acid 1 mg DAILY PO 01/30/25 10:00 01/31/25 10:36 1 MG Vancomycin HCl 0 ml @ 0 mls/hr UD IV 01/29/25 14:15 Cefepime HCl 50 ml @ 12.5 mls/hr Q12HR IV 01/29/25 22:00 UNV Hydroxyzine Pamoate 50 mg Q6HPRN PRN PO 01/31/25 12:45 Laboratory Results Laboratory Tests 01/31/25 05:17 Chemistry Test 01/31/25 05:17 Calcium Level 8.1 mg/dL (8.7-10.4) L Urinalysis Test 01/29/25 10:00 Urine Color [place] (Yellow) H Urine Clarity Ex.turbid (Clear) Urine pH 5.5 (5.0-9.0) Urine Specific [place] 1.016 (1.001-1.035) Urine Protein 1+ (Negative) H Urine Ketones Negative (Negative) Urine Blood 2+ /uL (Negative) H Urine Nitrite Negative (Negative) Urine Bilirubin Negative (Negative) Urine Urobilinogen 3 mg/dL (Negative) H Urine Leukocyte Esterase 3+ /uL (Negative) Urine RBC 21 /hpf (0 - 3) Urine WBC Clumps Present /hpf (None Seen) Urine Microscopic WBC 2576 /HPF (0-3) H Urine Squamous Epithelial Cells Few /hpf (<5) Urine Bacteria None seen /hpf (None Seen) Urine Mucus Few (None Seen) Urine Glucose Normal mg/dL (Normal) Microbiology Microbiology Date/Time Source Procedure Growth Status 01/29/25 09:23 Blood Blood Culture - Preliminary NO GROWTH AFTER 48 HOURS OF INCUBATION. Resulted Labs and/or images reviewed: Labs reviewed by me, Image(s) reviewed by me Assessment/Plan Assessment/Plan Clyde Helm is a 74-year-old male with no significant past medical history who does not go to a primary care provider. Patient called EMS to bring him to the hospital today due to back pain, and multiple bed sores on his body. Per EMS when they arrived the house was extremely unkept and the patient was sitting in his own urine and feces. Patient states he can walk short distances in the house, but not very far. He states he lives with his who can ambulate around the house but is not helping him. 01/30: Patient unkempt, no vomiting care patient patient unable to take care of himself. On admission appears that patient has sirs with possible source in urine. Patient also intravascular volume depleted with thrombocytosis, hypokalemic hyponatremic from intravascular volume depletion. Lactic acidosis Ag A G MA. Pending urine culture, pending blood culture, continue IV antibiotics. Cefepime and vancomycin. Blood pressure stable, we will continue cefepime vancomycin has most likely sources urine but it could also still be skin as patient is terribly unkempt 01/31: Patient is cleaned today by nursing staff, wound Care has seen patient in his putting honey gauze and silver sulfadiazine. Urine was concerning for infection but no urine bacterial culture was taken which we will order today. We will also order U tox today. Patient is irritable. Patient does not have adequate care at home, unclear of dynamic with /spouse. PT eval today. DAVID has resolved creatinine 2.18 down to 1.41. We will replete hypokalemia. We are repleting Mag and potassium, more IV fluids. Tomorrow a.m. we will check again BNP CBC magnesium lactic TSH a.m. cortisol. Diagnosis: Sepsis due to below Acute complicated cystitis Failure to thrive in adult, Intravascular volume depletion DAVID and CKD, DAVID due to VMN likely Anemia, normocytic, at baseline Thrombocytosis due to above Hypokalemia Hyponatremia, likely hypovolemic Leukocytosis Neutrophilia Tachycardia Tachypnea Lactic acidosis, Anion gap metabolic acidosis, due to above Hyperbilirubinemia, ALP elevated Possible sepsis, Acute Kidney injury, -IV antibiotics cefepime vancomycin - pending urine culture blood culture -prn analgesia -wound care, zinc sulfate cream barrier -dietary consult -PT eval - p.o. vitamins Diet low-sodium Med surge Full code Plan discussed with: Patient My Orders Orders - RODOLFO SAMUELS MD Procedure Category Date Status Time * Wound Consult CONS 01/31/25 Transmitted 01:39 * Dietary Consult CONS 01/31/25 Transmitted 01:39 * Vacuum Filter Operator CONS 01/31/25 Transmitted Consult 01:39 Hydroxyzine Oral PHA 01/31/25 In Process (Vistaril Oral) 12:45 Urine Bacterial JAZ 01/31/25 Logged Culture 13:45 Drug Screen LAB 01/31/25 Logged 14:15 Date of Service: Jan 31, 2025 Billing Provider: RODOLFO SAMUELS MD Common Visit Codes: [id number] INP/OBS CARE(HIGH) RODOLFO SAMUELS MD Jan 31, 2025 15:15
[2025-01-31 15:57] LABS: Opiate Scree,Urine Neg (NEGATIVE)
[2025-01-31 16:05] LABS: Amphetamine Screen, Urine Neg (NEGATIVE); Barbiturate Scree,Urine Neg (NEGATIVE); Benzodiazephine Screen, Urine Neg (NEGATIVE); Cannabinoid Screen, Urine Neg (NEGATIVE); Cocaine Screen, Urine Neg (NEGATIVE); Phencyclidine Screen, Urine Neg (NEGATIVE)
[2025-01-31 16:51] VITALS: BP 101/65; PULSE 77; RESP 17; TEMP 97.8; O2SAT 98
[2025-01-31] MEDS: LACTATED RINGER'S 1,000 ML IV ONE (20:30)
[2025-01-31 21:00] VITALS: BP 113/70; PULSE 75; RESP 20; TEMP 97.7; O2SAT 98
[2025-02-01] VITALS (7 sets, daily range): BP systolic 99–134; BP diastolic 59–89; PULSE 75–108; RESP 18–20; TEMP 97.5–99.6; O2SAT 96–100
[2025-02-01] MEDS: hydrOXYzine 25 MG TAB or CAP PO PRN (00:28)
[2025-02-01 11:21] LABS: Anion Gap 9 (5-15); Carbon Dioxide 27 mmol/L (20-31); Potassium 4.4 mmol/L (3.5-5.1)
[2025-02-01 11:27] LABS: BUN/Creatinine Ratio 21.8 (10.0-20.0); Blood Urea Nitrogen 22 mg/dL (9-23); Glucose 101 mg/dL (74-106)
[2025-02-01 11:29] LABS: Calcium 8.6 mg/dL (8.7-10.4); Chloride 97 mmol/L (98-107); Magnesium 1.4 mg/dL (1.6-2.6); Sodium 133 mmol/L (136-145)
--- NOTE | 2025-02-01 14:09 | ECG ---
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
--- NOTE | 2025-02-01 14:56 | ECG ---
[facility] Test Date: 2025-01-30 Test Time: 00:47:57 Pat Name: LESLY BRYSON Department: [facility] ED Patient ID: [id number] Room: 0233 A Gender: M Rn Cardiovascular Icu: MODE : 1950 Requested By: RODOLFO RUBY Order Number: [id number] Reading MD: Edwin Cantor Measurements Intervals [place] Rate: 111 P: 64 SD: 134 QRS: 49 QRSD: 86 T: 216 QT: 343 QTc: 466 Interpretive Statements Sinus tachycardia Ventricular bigeminy Nonspecific repol abnormality, diffuse leads Electronically Signed On 02-04-2025 17:52:50 PDT by Edwin Cantor Please click the below link to view image of tracing.
--- NOTE | 2025-02-01 16:58 | DVHPN2 ---
Subjective doing well. seen bedside Reviewed: H&P Changes from previous H/P or p: No Changes General: Per HPI Eyes: No Pain, No Vision change, No Conjunctivae inflammation, No Eyelid inflammation, No Other, No Redness ENT: No Ear pain, No Ear discharge, No Nose pain, No Nose discharge, No Nose congestion, No Mouth pain, No Mouth swelling, No Throat pain, No Throat swelling, No Other Cardiovascular: No Chest Pain, No Palpitations, No Orthopnea, No Paroxysmal Noc. Dyspnea, No Edema, No Lt Headedness, No Other Respiratory: No Cough, No Dry, No Shortness of breath, No SOB with excertion, No Wheezing, No Hemoptysis, No Pleuritic Pain, No Sputum, No Other Gastrointestinal: No Nausea, No Vomiting, No Abdominal Pain, No Diarrhea, No Constipation, No Melena, No Hematochezia, No Other Genitourinary: No Dysuria, No Frequency; Incontinence; No Hematuria, No Retention, No Other Musculoskeletal: No other, No neck pain, No shoulder pain, No arm pain; back pain; No hand pain, No leg pain, No foot pain Skin: No Rash, No Lesions, No Jaundice, No Bruising, No Other Objective Vitals Vital Signs Date Time Temp Pulse Resp B/P (MAP) Pulse Ox O2 Delivery O2 Flow Rate FiO2 02/01/25 14:52 99.2 92 18 134/89 (104) 98 99.2 02/01/25 07:45 Nasal Cannula* 2 28 Intake/Output Intake and Output 02/01/25 07:00 Intake Total 1850 ml Output Total 2400 ml Balance -550 ml Intake Oral 1500 ml IV Total 350 ml Output Urine Total 2400 ml Exam GEN: Healthy appearing, well-developed, NAD. HEENT: NC/AT; MMM. CV: RRR, no m/r/g. LUNGS: CTAB, no w/r/c. ABD: Soft, NT/ND, NBS, no masses or organomegaly. EXT: skin Warm, well perfused. no rashes. No clubbing, cyanosis, or edema. NEURO: Ambulating with no limitations. No focal deficits. Medications Current Medications Medications Dose Ordered Sig/Devorah Route Start Time Stop Time Status Last Admin Dose Admin Cefepime HCl 50 ml @ 12.5 mls/hr Q12H IV 01/29/25 22:00 02/01/25 09:02 12.5 MLS/HR Acetaminophen/ Hydrocodone Bitart 1 tab Q4HP PRN PO 01/29/25 14:00 02/01/25 00:29 1 TAB Ondansetron HCl 4 mg Q4HP PRN IV 01/29/25 14:00 Docusate Sodium 100 mg BIDPRN PRN PO 01/29/25 14:00 Multivitamins 1 tab DAILY PO 01/30/25 10:00 02/01/25 09:02 1 TAB Acetaminophen 650 mg Q6HP PRN PO 01/29/25 14:00 Zinc Sulfate 220 mg DAILY PO 01/30/25 10:00 02/01/25 09:02 220 MG Folic Acid 1 mg DAILY PO 01/30/25 10:00 02/01/25 09:02 1 MG Vancomycin HCl 0 ml @ 0 mls/hr UD IV 01/29/25 14:15 Cefepime HCl 50 ml @ 12.5 mls/hr Q12HR IV 01/29/25 22:00 UNV Hydroxyzine Pamoate 50 mg Q6HPRN PRN PO 01/31/25 12:45 02/01/25 00:28 50 MG Vancomycin HCl 100 ml @ 100 mls/hr Q24H IV 02/01/25 17:00 Laboratory Results Laboratory Tests 02/01/25 10:30 Chemistry Test 02/01/25 10:30 Calcium Level 8.6 mg/dL (8.7-10.4) L Magnesium Level 1.4 mg/dL (1.6-2.6) L HgA1c, TSH Test 02/01/25 10:30 Thyroid Stimulating Hormone (TSH) 1.90 uIU/mL (0.55-4.78) Urinalysis Test 01/29/25 10:00 Urine Color [place] (Yellow) H Urine Clarity Ex.turbid (Clear) Urine pH 5.5 (5.0-9.0) Urine Specific [place] 1.016 (1.001-1.035) Urine Protein 1+ (Negative) H Urine Ketones Negative (Negative) Urine Blood 2+ /uL (Negative) H Urine Nitrite Negative (Negative) Urine Bilirubin Negative (Negative) Urine Urobilinogen 3 mg/dL (Negative) H Urine Leukocyte Esterase 3+ /uL (Negative) Urine RBC 21 /hpf (0 - 3) Urine WBC Clumps Present /hpf (None Seen) Urine Microscopic WBC 2576 /HPF (0-3) H Urine Squamous Epithelial Cells Few /hpf (<5) Urine Bacteria None seen /hpf (None Seen) Urine Mucus Few (None Seen) Urine Glucose Normal mg/dL (Normal) Microbiology Microbiology Date/Time Source Procedure Growth Status 01/31/25 14:15 Urine - [place] Urine Culture - Preliminary Resulted 01/29/25 09:23 Blood Blood Culture - Preliminary NO GROWTH AFTER 72 HOURS OF INCUBATION. Resulted Labs and/or images reviewed: Labs reviewed by me, Image(s) reviewed by me Assessment/Plan Assessment/Plan lCyde Helm is a 74-year-old male with no significant past medical history who does not go to a primary care provider. Patient called EMS to bring him to the hospital today due to back pain, and multiple bed sores on his body. Per EMS when they arrived the house was extremely unkept and the patient was sitting in his own urine and feces. Patient states he can walk short distances in the house, but not very far. He states he lives with his who can ambulate around the house but is not helping him. 01/30: Patient unkempt, no vomiting care patient patient unable to take care of himself. On admission appears that patient has sirs with possible source in urine. Patient also intravascular volume depleted with thrombocytosis, hypokalemic hyponatremic from intravascular volume depletion. Lactic acidosis Ag A G MA. Pending urine culture, pending blood culture, continue IV antibiotics. Cefepime and vancomycin. Blood pressure stable, we will continue cefepime vancomycin has most likely sources urine but it could also still be skin as patient is terribly unkempt 01/31: Patient is cleaned today by nursing staff, wound Care has seen patient in his putting honey gauze and silver sulfadiazine. Urine was concerning for infection but no urine bacterial culture was taken which we will order today. We will also order U tox today. Patient is irritable. Patient does not have adequate care at home, unclear of dynamic with /spouse. PT eval today. DAVID has resolved creatinine 2.18 down to 1.41. We will replete hypokalemia. We are repleting Mag and potassium, more IV fluids. Tomorrow a.m. we will check again BNP CBC magnesium lactic TSH a.m. cortisol. 02/01: Patient improving wounds are healing well patient to continue wound care and PT recommends with PT rehab. Initially urine was suspicious open infection with a still possible. This is normal, a.m. cortisol was normal, patient is potassium is normal now what magnesium still low. CK was upper limit of normal. We will continue to treat patient as possible UTI complicated cystitis cellulitis. He is also fairly with 5 with Physical deconditioning. Continue transition patient for PT rehab and wound care at SNF center. They can likely be discharge after weekend SNF facility with some p.o. antibiotics. Diagnosis: Sepsis due to below Acute complicated cystitis Cellulitis of wounds left lower quadrant/left groin left thigh Failure to thrive in adult, Intravascular volume depletion DAVID and CKD, DAVID due to VMN likely Anemia, normocytic, at baseline Thrombocytosis due to above Hypokalemia Hyponatremia, likely hypovolemic Leukocytosis Neutrophilia Tachycardia Tachypnea Lactic acidosis, Anion gap metabolic acidosis, due to above Hyperbilirubinemia, ALP elevated Possible sepsis, Acute Kidney injury, -IV antibiotics cefepime vancomycin - pending urine culture blood culture -prn analgesia -wound care, zinc sulfate cream barrier -dietary consult -PT eval - p.o. vitamins Diet low-sodium Med surge Full code Plan discussed with: Patient My Orders Orders - RODOLFO SAMUELS MD Procedure Category Date Status Time Apply Barrier Cream GONZÁLEZ 01/31/25 In Process 14:00 Cleanse Wound With GONZÁLEZ 01/31/25 In Process Mild Soap A 14:00 Initiate Vte GONZÁLEZ 01/31/25 In Process Prophylaxis 21:06 Electrocardigram EKG 02/01/25 Logged 16:34 * Coconut Boiler CONS 02/01/25 Transmitted Consult Date of Service: Feb 01, 2025 Billing Provider: RODOLFO SAMUELS MD Common Visit Codes: [id number] INP/OBS CARE(HIGH) RODOLFO SAMUELS MD Feb 01, 2025 16:58
[2025-02-01] MEDS: VANCOMYCIN 750MG KIT 100 ML IV SCH (17:15)
[2025-02-01 18:28] LABS: Hematocrit 29.0 % (41.0-53.0); Hemoglobin 9.5 g/dL (13.5-17.5); Mean Corpuscular Hemoglobin 27.5 pg (28.0-32.0); Mean Corpuscular Volume 84.5 fL (80.0-100.0); Nucleated Red Blood Cells % 0.0 %
[2025-02-01] MEDS: MAGNESIUM SULFATE 1GM/100ML 100 ML IV ONE (20:06)
[2025-02-02 05:00] VITALS: BP 114/66; PULSE 80; RESP 18; TEMP 98.6; O2SAT 100
[2025-02-02 08:30] VITALS: BP 113/73; PULSE 79; RESP 14; TEMP 97.9; O2SAT 99
[2025-02-02 08:32] LABS: Potassium 3.8 mmol/L (3.5-5.1)
[2025-02-02 08:33] LABS: Anion Gap 8 (5-15); Carbon Dioxide 29 mmol/L (20-31)
[2025-02-02 08:38] LABS: BUN/Creatinine Ratio 21.7 (10.0-20.0); Blood Urea Nitrogen 20 mg/dL (9-23); Glucose 96 mg/dL (74-106)
[2025-02-02 08:40] LABS: Calcium 8.7 mg/dL (8.7-10.4); Chloride 97 mmol/L (98-107); Sodium 134 mmol/L (136-145)
--- NOTE | 2025-02-02 12:07 | DVHPN2 ---
Reviewed: H&P Changes from previous H/P or p: No Changes General: Per HPI Eyes: No Pain, No Vision change, No Conjunctivae inflammation, No Eyelid inflammation, No Other, No Redness ENT: No Ear pain, No Ear discharge, No Nose pain, No Nose discharge, No Nose congestion, No Mouth pain, No Mouth swelling, No Throat pain, No Throat swelling, No Other Cardiovascular: No Chest Pain, No Palpitations, No Orthopnea, No Paroxysmal Noc. Dyspnea, No Edema, No Lt Headedness, No Other Respiratory: No Cough, No Dry, No Shortness of breath, No SOB with excertion, No Wheezing, No Hemoptysis, No Pleuritic Pain, No Sputum, No Other Gastrointestinal: No Nausea, No Vomiting, No Abdominal Pain, No Diarrhea, No Constipation, No Melena, No Hematochezia, No Other Genitourinary: No Dysuria, No Frequency; Incontinence; No Hematuria, No Retention, No Other Musculoskeletal: No other, No neck pain, No shoulder pain, No arm pain; back pain; No hand pain, No leg pain, No foot pain Skin: No Rash, No Lesions, No Jaundice, No Bruising, No Other Objective Vitals Vital Signs Date Time Temp Pulse Resp B/P (MAP) Pulse Ox O2 Delivery O2 Flow Rate FiO2 02/02/25 08:30 97.9 79 14 113/73 (86) 99 97.9 02/02/25 08:00 Room Air* 0 21 Intake/Output Intake and Output 02/02/25 07:00 Intake Total 1495 ml Output Total 2375 ml Balance -880 ml Intake Oral 1195 ml IV Total 300 ml Output Urine Total 2375 ml Medications Current Medications Medications Dose Ordered Sig/Devorah Route Start Time Stop Time Status Last Admin Dose Admin Cefepime HCl 50 ml @ 12.5 mls/hr Q12H IV 01/29/25 22:00 02/02/25 09:56 12.5 MLS/HR Acetaminophen/ Hydrocodone Bitart 1 tab Q4HP PRN PO 01/29/25 14:00 02/02/25 09:56 1 TAB Ondansetron HCl 4 mg Q4HP PRN IV 01/29/25 14:00 Docusate Sodium 100 mg BIDPRN PRN PO 01/29/25 14:00 Multivitamins 1 tab DAILY PO 01/30/25 10:00 02/02/25 09:56 1 TAB Acetaminophen 650 mg Q6HP PRN PO 01/29/25 14:00 Zinc Sulfate 220 mg DAILY PO 01/30/25 10:00 02/02/25 09:55 220 MG Folic Acid 1 mg DAILY PO 01/30/25 10:00 02/02/25 09:56 1 MG Vancomycin HCl 0 ml @ 0 mls/hr UD IV 01/29/25 14:15 Cefepime HCl 50 ml @ 12.5 mls/hr Q12HR IV 01/29/25 22:00 UNV Hydroxyzine Pamoate 50 mg Q6HPRN PRN PO 01/31/25 12:45 02/01/25 00:28 50 MG Vancomycin HCl 100 ml @ 100 mls/hr Q24H IV 02/01/25 17:00 02/01/25 17:15 100 MLS/HR Laboratory Results Laboratory Tests 02/01/25 18:16 02/02/25 07:55 Chemistry Test 02/02/25 07:55 Calcium Level 8.7 mg/dL (8.7-10.4) Urinalysis Test 01/29/25 10:00 Urine Color [place] (Yellow) H Urine Clarity Ex.turbid (Clear) Urine pH 5.5 (5.0-9.0) Urine Specific [place] 1.016 (1.001-1.035) Urine Protein 1+ (Negative) H Urine Ketones Negative (Negative) Urine Blood 2+ /uL (Negative) H Urine Nitrite Negative (Negative) Urine Bilirubin Negative (Negative) Urine Urobilinogen 3 mg/dL (Negative) H Urine Leukocyte Esterase 3+ /uL (Negative) Urine RBC 21 /hpf (0 - 3) Urine WBC Clumps Present /hpf (None Seen) Urine Microscopic WBC 2576 /HPF (0-3) H Urine Squamous Epithelial Cells Few /hpf (<5) Urine Bacteria None seen /hpf (None Seen) Urine Mucus Few (None Seen) Urine Glucose Normal mg/dL (Normal) Microbiology Microbiology Date/Time Source Procedure Growth Status 01/31/25 14:15 Urine - [place] Urine Culture - Preliminary Resulted 01/29/25 09:23 Blood Blood Culture - Preliminary NO GROWTH AFTER 72 HOURS OF INCUBATION. Resulted Labs and/or images reviewed: Labs reviewed by me, Image(s) reviewed by me Assessment/Plan Assessment/Plan Covering for Dr. Valle Sepsis due to complicated cystitis with leukocytosis tachycardia tachypnea and lactic acidosis Acute complicated cystitis Cellulitis of wounds left lower quadrant/left groin left thigh: Continue cefepime and vancomycin Failure to thrive DAVID and CKD, DAVID due to VMN likely Anemia, normocytic, at baseline Thrombocytosis due to above Hypokalemia Hyponatremia, likely hypovolemic Severe hypoalbuminemia Anion gap metabolic acidosis, due to above Hyperbilirubinemia, Moderate malnutrition Time spent 70 minutes Advanced care planning time 20 minutes Patient is full code Plan discussed with: Patient Date of Service: Feb 02, 2025 Billing Provider: CAMERON MOULTON MD Common Visit Codes: [id number] CARE 30-74 MIN CAMERON MOULTON MD Feb 02, 2025 12:07
[2025-02-02 12:30] VITALS: BP 106/61; PULSE 77; RESP 14; TEMP 97.2; O2SAT 99
[2025-02-02 17:30] VITALS: BP 101/63; PULSE 84; RESP 16; TEMP 97.9; O2SAT 99
[2025-02-02 21:00] VITALS: BP 116/69; PULSE 89; RESP 18; TEMP 98.1; O2SAT 95
[2025-02-03 01:00] VITALS: BP 112/70; PULSE 88; RESP 20; TEMP 98.4; O2SAT 97
[2025-02-03 05:00] VITALS: BP 103/54; PULSE 85; RESP 20; TEMP 98.4; O2SAT 98
[2025-02-03 08:18] VITALS: BP 102/67; PULSE 87; O2SAT 96
[2025-02-03 09:07] VITALS: BP 97/64; PULSE 84; RESP 14; TEMP 98.8; O2SAT 100
--- NOTE | 2025-02-03 10:11 | DVHPN2 ---
Reviewed: H&P Changes from previous H/P or p: No Changes General: Per HPI Eyes: No Pain, No Vision change, No Conjunctivae inflammation, No Eyelid inflammation, No Other, No Redness ENT: No Ear pain, No Ear discharge, No Nose pain, No Nose discharge, No Nose congestion, No Mouth pain, No Mouth swelling, No Throat pain, No Throat swelling, No Other Cardiovascular: No Chest Pain, No Palpitations, No Orthopnea, No Paroxysmal Noc. Dyspnea, No Edema, No Lt Headedness, No Other Respiratory: No Cough, No Dry, No Shortness of breath, No SOB with excertion, No Wheezing, No Hemoptysis, No Pleuritic Pain, No Sputum, No Other Gastrointestinal: No Nausea, No Vomiting, No Abdominal Pain, No Diarrhea, No Constipation, No Melena, No Hematochezia, No Other Genitourinary: No Dysuria, No Frequency; Incontinence; No Hematuria, No Retention, No Other Musculoskeletal: No other, No neck pain, No shoulder pain, No arm pain; back pain; No hand pain, No leg pain, No foot pain Skin: No Rash, No Lesions, No Jaundice, No Bruising, No Other Objective Vitals Vital Signs Date Time Temp Pulse Resp B/P (MAP) Pulse Ox O2 Delivery O2 Flow Rate FiO2 02/03/25 09:07 98.8 84 14 97/64 (75) 100 98.8 02/02/25 20:00 Room Air* 0 21 Intake/Output Intake and Output 02/03/25 07:00 Intake Total 1200 ml Output Total 1900 ml Balance -700 ml Intake Oral 1100 ml IV Total 100 ml Output Urine Total 1900 ml # Bowel Movements 3 Medications Current Medications Medications Dose Ordered Sig/Devorah Route Start Time Stop Time Status Last Admin Dose Admin Cefepime HCl 50 ml @ 12.5 mls/hr Q12H IV 01/29/25 22:00 02/03/25 09:46 12.5 MLS/HR Acetaminophen/ Hydrocodone Bitart 1 tab Q4HP PRN PO 01/29/25 14:00 02/03/25 09:46 1 TAB Ondansetron HCl 4 mg Q4HP PRN IV 01/29/25 14:00 Docusate Sodium 100 mg BIDPRN PRN PO 01/29/25 14:00 Multivitamins 1 tab DAILY PO 01/30/25 10:00 02/03/25 09:46 1 TAB Acetaminophen 650 mg Q6HP PRN PO 01/29/25 14:00 Zinc Sulfate 220 mg DAILY PO 01/30/25 10:00 02/03/25 09:46 220 MG Folic Acid 1 mg DAILY PO 01/30/25 10:00 02/03/25 09:46 1 MG Vancomycin HCl 0 ml @ 0 mls/hr UD IV 01/29/25 14:15 Cefepime HCl 50 ml @ 12.5 mls/hr Q12HR IV 01/29/25 22:00 UNV Hydroxyzine Pamoate 50 mg Q6HPRN PRN PO 01/31/25 12:45 02/01/25 00:28 50 MG Vancomycin HCl 100 ml @ 100 mls/hr Q24H IV 02/01/25 17:00 02/02/25 16:15 100 MLS/HR Laboratory Results Laboratory Tests 02/01/25 18:16 02/02/25 07:55 02/03/25 04:53 Urinalysis Test 01/29/25 10:00 Urine Color [place] (Yellow) H Urine Clarity Ex.turbid (Clear) Urine pH 5.5 (5.0-9.0) Urine Specific [place] 1.016 (1.001-1.035) Urine Protein 1+ (Negative) H Urine Ketones Negative (Negative) Urine Blood 2+ /uL (Negative) H Urine Nitrite Negative (Negative) Urine Bilirubin Negative (Negative) Urine Urobilinogen 3 mg/dL (Negative) H Urine Leukocyte Esterase 3+ /uL (Negative) Urine RBC 21 /hpf (0 - 3) Urine WBC Clumps Present /hpf (None Seen) Urine Microscopic WBC 2576 /HPF (0-3) H Urine Squamous Epithelial Cells Few /hpf (<5) Urine Bacteria None seen /hpf (None Seen) Urine Mucus Few (None Seen) Urine Glucose Normal mg/dL (Normal) Microbiology Microbiology Date/Time Source Procedure Growth Status 01/31/25 14:15 Urine - [place] Urine Culture - Preliminary Resulted 01/29/25 09:23 Blood Blood Culture - Final NO GROWTH AFTER 5 DAYS OF INCUBATION. Complete Labs and/or images reviewed: Labs reviewed by me, Image(s) reviewed by me Assessment/Plan Assessment/Plan Covering for Dr. Valle Sepsis due to complicated cystitis with leukocytosis tachycardia tachypnea and lactic acidosis Acute complicated cystitis Cellulitis left groin and thigh: Continue cefepime and vancomycin Failure to thrive DAVID and CKD, DAVID due to VMN Anemia, normocytic, at baseline Thrombocytosis due to above Hypokalemia Hyponatremia, likely hypovolemic Severe hypoalbuminemia Moderate malnutrition Patient will be discharged to [facility] facility to receive IV cefepime for two weeks for cellulitis right groin and p.o. Cipro for UTI Patient is in agreement Plan discussed with: Patient Date of Service: Feb 03, 2025 Billing Provider: CAMERON MOULTON MD Common Visit Codes: [id number] INP/OBS CARE(HIGH) CAMERON MOULTON MD Feb 03, 2025 10:11
--- NOTE | 2025-02-03 10:23 | DVHDS2 ---
Discharge Summary Date of Admission Jan 29, 2025 at 14:00 Date of Discharge: Feb 03, 2025 Admitting Diagnosis Failure to thrive and right groin cellulitis Wounds: Right groin cellulitis Labs/Diagnostic Data: Laboratory Results Test 02/03/25 04:53 02/02/25 07:55 02/01/25 18:16 02/01/25 10:30 Creatinine 0.66 mg/dL (0.700-1.30) Glomerular Filtration Rate Calc 97 mL/min (>90) Sodium Level 134 mmol/L (136-145) Potassium Level 3.8 mmol/L (3.5-5.1) Chloride Level 97 mmol/L (98-107) Carbon Dioxide Level 29 mmol/L (20-31) Anion Gap 8 (5-15) Blood Urea Nitrogen 20 mg/dL (9-23) BUN/Creatinine Ratio 21.7 (10.0-20.0) Serum Glucose 96 mg/dL (74-106) Calcium Level 8.7 mg/dL (8.7-10.4) White Blood Count 8.3 10^3/uL (4.4-10.8) Red Blood Count 3.43 10^6/uL (4.5-5.90) Hemoglobin 9.5 g/dL (13.5-17.5) Hematocrit 29.0 % (41.0-53.0) Mean Corpuscular Volume 84.5 fL (80.0-100.0) Mean Corpuscular Hemoglobin 27.5 pg (28.0-32.0) Mean Corpuscular Hemoglobin Concent 32.6 g/dL (32.0-36.0) Red Cell Distribution Width 19.9 % (11.8-14.3) Platelet Count 436 10^3/uL (140-450) Mean Platelet Volume 7.7 fL (6.9-10.8) Neutrophils (%) (Auto) 73.8 % (37.0-80.0) Lymphocytes (%) (Auto) 17.3 % (10.0-50.0) Monocytes (%) (Auto) 6.7 % (0.0-12.0) Eosinophils (%) (Auto) 1.4 % (0.0-7.0) Basophils (%) (Auto) 0.8 % (0.0-2.0) Neutrophils # (Auto) 6.1 10 ^3/uL (1.6-8.6) Lymphocytes # (Auto) 1.4 10 ^3/uL (0.4-5.4) Monocytes # (Auto) 0.6 10 ^3/uL (0-1.3) Eosinophils # (Auto) 0.1 10 ^3/uL (0-0.8) Basophils # (Auto) 0.1 10 ^3/uL (0-0.2) Nucleated Red Blood Cells 0.0 % Lactic Acid Level 1.9 mmol/L (0.4-2.0) Magnesium Level 1.4 mg/dL (1.6-2.6) Thyroid Stimulating Hormone (TSH) 1.90 uIU/mL (0.55-4.78) Test 02/01/25 08:39 01/31/25 14:15 01/30/25 05:14 01/29/25 13:16 Cortisol AM Sample 16.56 ug/dL (5.27-22.45) Random Vancomycin Level 16.0 ug/mL (5-10) Urine Opiates Screen Neg (NEGATIVE) Urine Fentanyl Screen Neg (NEGATIVE) Urine Barbiturates Screen Neg (NEGATIVE) Urine Phencyclidine Screen Neg (NEGATIVE) Urine Amphetamines Screen Neg (NEGATIVE) Urine Benzodiazepines Screen Neg (NEGATIVE) Urine Cocaine Screen Neg (NEGATIVE) Urine Cannabinoids Screen Neg (NEGATIVE) Total Bilirubin 0.4 mg/dL (0.2-1.0) Aspartate Amino Transferase (AST) 21 U/L (13-40) Alanine Aminotransferase (ALT) 10 U/L (7-40) Alkaline Phosphatase 205 U/L (46-116) Total Protein 5.6 g/dL (5.7-8.2) Albumin 3.2 g/dL (3.2-4.8) Troponin I High Sensitivity 13 ng/L (</=54) Test 01/29/25 10:00 01/29/25 09:23 Urine Color [place] (Yellow) Urine Clarity Ex.turbid (Clear) Urine pH 5.5 (5.0-9.0) Urine Specific [place] 1.016 (1.001-1.035) Urine Protein 1+ (Negative) Urine Ketones Negative (Negative) Urine Blood 2+ /uL (Negative) Urine Nitrite Negative (Negative) Urine Bilirubin Negative (Negative) Urine Urobilinogen 3 mg/dL (Negative) Urine Leukocyte Esterase 3+ /uL (Negative) Urine RBC 21 /hpf (0 - 3) Urine WBC Clumps Present /hpf (None Seen) Urine Microscopic WBC 2576 /HPF (0-3) Urine Squamous Epithelial Cells Few /hpf (<5) Urine Bacteria None seen /hpf (None Seen) Urine Mucus Few (None Seen) Urine Glucose Normal mg/dL (Normal) Prothrombin Time 14.1 sec (9.3-11.8) Prothrombin Time INR 1.37 (0.9-1.15) Activated Partial Thromboplast Time 32.0 SEC (24.5-34.5) Hemoglobin A1c 5.2 % A1C (<5.7) Creatine Kinase 170 U/L (46-171) Other Laboratory Tests 02/03/25 04:53 02/02/25 07:55 02/01/25 18:16 Brief Hx & Hospital Course: 74-year-old male brought in for altered mental status and generalized weakness and failure to thrive found to have cellulitis left groin in three started on cefepime and vancomycin patient also had sepsis secondary to complicated cystitis with leukocytosis tachycardia and tachypnea and lactic acidosis. Urine cultures showing Gram-negative rods. Patient had DAVID and anemia thrombocytosis hyponatremia which has been resolved with IV fluids. The patient is very cachectic and condition. [facility] 1 g IV q.12h for two weeks for cellulitis on for urinary infection physical therapy and rehab. The patient agrees. General condition poor at the time of discharge Consults/Reason for consult None Operations or Procedures None Condition at Discharge: Fair Final Diagnosis/Problems List Sepsis due to complicated cystitis with leukocytosis tachycardia tachypnea and lactic acidosis Acute complicated cystitis Cellulitis left groin and thigh: Continue cefepime and vancomycin Failure to thrive DAVID and CKD, DAVID due to VMN Anemia, normocytic, at baseline Thrombocytosis due to above Hypokalemia Hyponatremia, likely hypovolemic Severe hypoalbuminemia [facility] Discharge Instruct/Medications Diet: Regular Activity: Light activity Follow Up/Referral: [facility] with [facility] Medications: Cefepime 1 g IV q.12h for two weeks See list for other meds No Active Prescriptions or Reported Meds 39 (Time taken for discharge summary 39 minutes) Discharge Statement: "Patient was advised to return to the ER or call 911 if any headaches, dizziness, shortness of breath, chest pain, abdominal pain, bleeding, fevers, or worsening of medical condition. Patient was counseled about treatment plan, medications, possible side effects, patientverbalized understanding. All questions were answered to the best of my ability. This discharge took greater then 30 minutes in planning, reviewing documentation, counseling the patient, and discussing with other team members." ASSESSMENT ASSESSMENT Hospital Course Marginal improvement Assessment Sepsis due to complicated cystitis with leukocytosis tachycardia tachypnea and lactic acidosis Acute complicated cystitis Cellulitis left groin and thigh: Continue cefepime and vancomycin Failure to thrive DAVID and CKD, DAVID due to VMN Anemia, normocytic, at baseline Thrombocytosis due to above Hypokalemia Hyponatremia, likely hypovolemic Severe hypoalbuminemia Date of Service: Feb 03, 2025 Billing Provider: CAMERON MOULTON MD Common Visit Codes: [id number] INP/OBS CARE(HIGH) CAMERON MOULTON MD Feb 03, 2025 10:23
[2025-02-03 13:15] VITALS: BP 92/61; PULSE 63; RESP 14; TEMP 98.5; O2SAT 96
[2025-02-03 13:27] LABS: COVID19 ANTIGEN SOFIA FIA NEGATIVE (NEGATIVE)
[2025-02-03 17:30] VITALS: BP 109/60; PULSE 97; RESP 14; TEMP 98.9; O2SAT 96
--- NOTE | 2025-02-04 08:21 | ECG ---
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
--- NOTE | 2025-02-04 17:19 | ECG ---
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
== END 2025-02-03 17:15 | DRG 871 ==
LOC: ER 07:28 → EDBD 07:28 → OVERFLOW 14:00 → EAST 01-30 22:39
PROVIDERS: ADMIT Student in an Organized Health Care Education/Training Program; ATTEND Student in an Organized Health Care Education/Training Program
PROC: 05HC33Z Insertion of Infusion Device into Left Basilic Vein, Percutaneous Approach (ICD-10-PCS; principal; 2025-02-03)
PROC: B54NZZA Ultrasonography of Left Upper Extremity Veins, Guidance (ICD-10-PCS; 2025-02-03)
DX: A41.9 Sepsis, unspecified organism (principal); N17.0 Acute kidney failure with tubular necrosis; E87.20 Acidosis, unspecified; E87.1 Hypo-osmolality and hyponatremia; N30.00 Acute cystitis without hematuria; E44.0 Moderate protein-calorie malnutrition; L03.314 Cellulitis of groin; I13.0 Hypertensive heart and chronic kidney disease with heart failure and stage 1 through stage 4 chronic kidney disease, or unspecified chronic kidney disease; L03.116 Cellulitis of left lower limb; Z20.822 Contact with and (suspected) exposure to COVID-19; Z68.23 Body mass index [BMI] 23.0-23.9, adult; R62.7 Adult failure to thrive; E86.1 Hypovolemia; E80.6 Other disorders of bilirubin metabolism; D75.838 Other thrombocytosis; D64.9 Anemia, unspecified; N18.9 Chronic kidney disease, unspecified; E88.09 Other disorders of plasma-protein metabolism, not elsewhere classified; E87.6 Hypokalemia; E11.22 Type 2 diabetes mellitus with diabetic chronic kidney disease; I50.9 Heart failure, unspecified
CPT/HCPCS: 36415; 71045; 80048; 80053; 80202; 80307; 81001; 82533; 82550; 82565; 83036; 83605; 83735; 84132; 84443; 84484; 85025; 85610; 85730; 87040; 87086; 87088; 87186; 87426; 93005; 96365; 97163; 99291; 99292; G0378; J3480